=== PATIENT | female | born 1955 | race African-American/Black ===

== ENCOUNTER 2016-11-15 09:19 | Outpatient (CLI) ==
[2016-02-07 08:48] VITALS: BMI 25.3
[2016-11-15 10:43] LABS: CHOL/HDL RATIO 3.4 (4.5-5.5)
== END 2016-11-15 09:20 | disposition home or self-care (01) ==
LOC: LAB 09:19
PROVIDERS: ATTEND Internal Medicine Cardiovascular Disease
DX: E78.5 Hyperlipidemia, unspecified (principal)
CPT/HCPCS: 36415; 80061

== ENCOUNTER 2017-03-09 11:09 | Outpatient (CLI) | payer OTHER ==
[2016-02-07 08:48] VITALS: BMI 25.3
[2017-03-09 13:21] LABS: BASOPHILS % (AUTO) 0.4 % (0.0-3.0); EOSINOPHILS # (AUTO) 0.1 K/ul (0.0-0.7); EOSINOPHILS % (AUTO) 1.6 % (0.0-7.0); HEMATOCRIT 42.8 % (37.0-47.0); HEMOGLOBIN 13.9 g/dl (12.0-16.0); IMMATURE GRANULOCYTE % (AUTO) 0.4 % (0.0-5.0); LYMPHOCYTES # (AUTO) 1.8 K/uL (0.60-3.4); LYMPHOCYTES % (AUTO) 35.5 (10.0-50.0); MEAN CORPUSCULAR HEMOGLOBIN 26.8 pg (27.0-31.0); MEAN CORPUSCULAR HGB CONC 32.5 (31.8-35.4); MEAN CORPUSCULAR VOLUME 82.6 fl (81.0-99.0); MONOCYTES # (AUTO) 0.5 K/uL (0.4-2.0); NEUTROPHILS # (AUTO) 2.7 K/ul (2.0-6.9); NEUTROPHILS % (AUTO) 53.1; PLATELET COUNT 148 10^3/uL (140-440); RED BLOOD COUNT 5.18 10^6/ul (4.20-5.40); WHITE BLOOD COUNT 5.02 K/ul (4.6-10.2)
[2017-03-09 13:36] LABS: ALBUMIN 4.1 g/dL (3.4-5.0); ALBUMIN/GLOBULIN RATIO 1.08; ANION GAP 12.6; BILIRUBIN,TOTAL 0.62 mg/dL (0.00-1.20); BUN/CREATININE RATIO 13.41; CALCIUM 9.4 mg/dL (8.2-10.2); CREATININE 0.82 mg/dL (0.60-1.30); POTASSIUM 3.6 mmol/L (3.5-5.10); TOTAL PROTEIN 7.9 g/dL (5.8-8.1)
== END 2017-03-09 11:10 | disposition home or self-care (01) ==
LOC: LAB 11:09
PROVIDERS: ATTEND Nurse Practitioner Family
DX: I10 Essential (primary) hypertension (principal); I70.90 Unspecified atherosclerosis
CPT/HCPCS: 36415; 80053; 80061; 85025

== ENCOUNTER 2017-03-13 08:20 | Outpatient (CLI) | payer OTHER ==
[2016-02-07 08:48] VITALS: BMI 25.3
--- NOTE | 2017-03-14 08:53 | MAMMO ---
EXAM: Bilateral digital screening mammogram History: Screening Comparison: Bilateral mammogram 02/07/2016 Findings: MLO and CC views of bilateral breasts demonstrate scattered fibroglandular breast parench yma. There are no dominant masses, no suspicious microcalcifications and no architectural distortio ns Impression: Stable negative mammogram. Recommend follow-up routine screening mammography in 1 year . BIRADS 1
== END 2017-03-13 08:21 | disposition home or self-care (01) ==
LOC: RAD 08:20
PROVIDERS: ATTEND Nurse Practitioner Family
DX: Z12.31 Encounter for screening mammogram for malignant neoplasm of breast (principal)

== ENCOUNTER 2017-04-24 11:37 | Outpatient (CLI) ==
[2016-02-07 08:48] VITALS: BMI 25.3
[2017-04-25 09:54] LABS: TSH 6.48 uIU/mL (0.450-4.500)
== END 2017-04-24 11:38 | disposition home or self-care (01) ==
LOC: LAB 11:37
PROVIDERS: ATTEND Nurse Practitioner Family
DX: E05.90 Thyrotoxicosis, unspecified without thyrotoxic crisis or storm (principal)
CPT/HCPCS: 36415; 84436; 84439; 84443; 84479; 84481

== ENCOUNTER 2017-06-04 09:19 | Outpatient (CLI) ==
[2016-02-07 08:48] VITALS: BMI 25.3
--- NOTE | 2017-06-04 10:11 | US ---
Examination: Venous Doppler ultrasound of the left lower extremity HISTORY: Localized edema COMPARISON: None TECHNIQUE: Multiple gallardo-scale and color Doppler sonographic images were obtained of the left lower extremity focusing on the venous system with compression and augmentation were applicable. FINDINGS: The left common femoral vein, profunda femoral vein, femoral vein, and popliteal veins de monstrate spontaneous flow with appropriate compression and augmentation. No definite evidence of b elow the knee thrombosis. The anterior and posterior tibial veins are not well seen. IMPRESSION: 1. No evidence of left lower extremity DVT in the areas examined with the left posterior tibial and anterior tibial veins not well seen..
[2017-06-05 14:46] VITALS: BMI 32.3
== END 2017-06-04 09:20 | disposition home or self-care (01) ==
LOC: RAD 09:19
PROVIDERS: ATTEND Emergency Medicine
DX: R60.0 Localized edema (principal)

== ENCOUNTER 2017-06-05 11:35 | Observation (INO) ==
[2017-06-05 12:24] LABS: BASOPHILS % (AUTO) 0.4 % (0.0-3.0); EOSINOPHILS # (AUTO) 0.1 K/ul (0.0-0.7); HEMATOCRIT 43.8 % (37.0-47.0); HEMOGLOBIN 14.9 g/dl (12.0-16.0); IMMATURE GRANULOCYTE % (AUTO) 0.3 % (0.0-5.0); LYMPHOCYTES # (AUTO) 2.3 K/uL (0.60-3.4); LYMPHOCYTES % (AUTO) 34.3 (10.0-50.0); MEAN CORPUSCULAR HEMOGLOBIN 27.2 pg (27.0-31.0); MEAN CORPUSCULAR VOLUME 79.9 fl (81.0-99.0); MONOCYTES # (AUTO) 0.5 K/uL (0.4-2.0); MONOCYTES % (AUTO) 7.1 (0-10); NEUTROPHILS # (AUTO) 3.9 K/ul (2.0-6.9); NEUTROPHILS % (AUTO) 56.9; PLATELET COUNT 144 10^3/uL (140-440); RED BLOOD COUNT 5.48 10^6/ul (4.20-5.40)
--- NOTE | 2017-06-05 12:45 | DI ---
EXAM: CHEST FRONTAL AND LATERAL VIEWS HISTORY: Chest pain. COMPARISON: 10/21/2013 FINDINGS: Heart size is within normal limits. A few discoid opacities are seen in the left lower l obe or lingular segment. Lungs are otherwise clear. No visible pleural fluid. IMPRESSION: A few thin discoid opacities in the left lingular segment or lower lobe may represent atelectasis or scarring. Subtle pneumonia would be within the differential. Less likely pulmonary nodules althou gh follow-up chest radiography is recommended to assure clearance or stability.
[2017-06-05 12:47] LABS: ALANINE AMINOTRANSFERASE 25 U/L (12-78); ALBUMIN 4.3 g/dL (3.4-5.0); ALBUMIN/GLOBULIN RATIO 1.13; ALKALINE PHOSPHATASE 40 U/L (53-141); ANION GAP 15.5; ASPARTATE AMINO TRANSFERASE 22 U/L (15-37); BILIRUBIN,TOTAL 0.72 mg/dL (0.00-1.20); BLOOD UREA NITROGEN 11 mg/dL (7-18); BUN/CREATININE RATIO 13.75; CALCIUM 10.5 mg/dL (8.2-10.2); CARBON DIOXIDE 28 mmol/L (23-31); CHLORIDE 103 mmol/L (98-107); CREATINE KINASE 71 U/L; GLUCOSE 90 mg/dL (82-115); POTASSIUM 3.5 mmol/L (3.5-5.10); SODIUM 143 mmol/L (136-145); TOTAL PROTEIN 8.1 g/dL (5.8-8.1)
--- NOTE | 2017-06-05 13:15 | ED.PDOC ---
General ED Provider: Dr. NELSON DEGROOT Chief Complaint: Dizziness Stated Complaint: weak elevated blood pressure Time Seen by Physician: 11:43 (seen with nursing at all times ) Mode of Arrival: Walk-In Information Source: Patient Exam Limitations: No limitations Primary Care Provider: HAMIDA CHARLES Nursing and Triage Documentation Reviewed and Agree: Yes Cardiovascular Complaint Exam - Chest Pain Complaint/Exam Onset: Gradual Duration: 1 day Symptoms Are: Resolved Timing: Intermittent Initial Severity: Mild Current Severity: None Location: Reports: Midsternal Pain Radiates: Reports: None Character: Reports: Dull Aggravating: Reports: None Alleviating: Reports: None Associated Signs and Symptoms: Denies: Diaphoresis, Nausea, Vomiting, Fever, Palpitations, Cough, Hemoptysis, Back pain, Abdominal pain, Dizziness, Short of air, Calf pain, Calf swelling Related History: Reports: Similar episode Related Surgical History: Reports: None History of Healthcare-Acquired Pneumonia: Reports: No TAD Risk Factors: Reports: Hypertension Pulmonary Embolism Risk Factors: Reports: None Prior Care for this Complaint: No Recent Stress Test: No Recent Echo/LV Function: No JVD Present: No Subcutaneous Emphysema Present: No Diminshed Breath Sounds: No Reproducible Chest Wall Pain: No Bilateral Pulses Present: No Unequal Pulses Noted: No If Risk Factors for AMI/ACS Consider: EKG, Cardiac Enzymes Quality Indicators For Acute MD or Cardiac Chest Pain: EKG in 10min. Review of Systems - Review Of Systems Constitutional: Reports: Malaise, Weakness Eyes: Reports: No symptoms Ears, Nose, Mouth, Throat: Reports: No symptoms Respiratory: Reports: Cough Cardiac: Reports: Chest pain GI: Reports: No symptoms : Reports: No symptoms Musculoskeletal: Reports: No symptoms Skin: Reports: No symptoms Neurological: Reports: No symptoms Endocrine: Reports: No symptoms Hematologic/Lymphatic: Reports: No symptoms All Other Systems: Reviewed and Negative Past Medical History - Past Medical History Previously Healthy: Yes Endocrine: Reports: None Cardiovascular: Reports: Hypertension Respiratory: Reports: None Hematological: Reports: None Gastrointestinal: Reports: None Genitourinary: Reports: None Neuro/Psych: Reports: None Musculoskeletal: Reports: None Cancer: Reports: None Last Menstrual Period: unknown - Surgical History General Surgical History: Reports: None - Family History Family History: Reports: None - Social History Smoking Status: Former smoker Hx Substance Use: No Alcohol Screening: None Physical Exam - Physical Exam Appearance: Well-appearing, No pain distress, Well-nourished Eyes: SULLY, EOMI, Conjunctiva clear ENT: Ears normal, Nose normal, Oropharynx normal Respiratory: Airway patent, Breath sounds clear, Breath sounds equal, Respirations nonlabored Cardiovascular: RRR, Pulses normal, No rub, No murmur GI/: Soft, Nontender, No masses, Bowel sounds normal, No Organomegaly Musculoskeletal: Normal strength, ROM intact, No edema, No calf tenderness Skin: Warm, Dry, Normal color Neurological: Sensation intact, Motor intact, Reflexes intact, Cranial nerves intact, Alert, Oriented Psychiatric: Affect appropriate, Mood appropriate Critical Care Note - Critical Care Note Total Time (mins): 0 Course - Course Hematology/Chemistry: 06/05/17 12:15 06/05/17 12:15 Orders, Labs, Meds: Lab Review 06/05/17 12:15 WBC 6.80 RBC 5.48 H Hgb 14.9 Hct 43.8 MCV 79.9 L MCH 27.2 MCHC 34.0 RDW Coeff of Veronica 12.8 Plt Count 144 Immature Gran % (Auto) 0.3 Neut % (Auto) 56.9 Lymph % (Auto) 34.3 [place] % (Auto) 7.1 Eos % (Auto) 1.0 Baso % (Auto) 0.4 Immature Gran # (Auto) 0.0 Neut # 3.9 Lymph # 2.3 [place] # 0.5 Eos # 0.1 Baso # 0.0 Sodium 143 Potassium 3.5 Chloride 103 Carbon Dioxide 28 Anion Gap 15.5 BUN 11 Creatinine 0.80 Estimated GFR (MDRD) 89.00 BUN/Creatinine Ratio 13.75 Glucose 90 Calcium 10.5 H Total Bilirubin 0.72 AST 22 ALT 25 Alkaline Phosphatase 40 L Total Creatine Kinase 71 Troponin I < 0.0100 Total Protein 8.1 Albumin 4.3 Globulin 3.8 Albumin/Globulin Ratio 1.13 Orders Category Date Time Status EKG-(ED ONLY) Stat CARDIO 06/05/17 12:01 Completed CBC W/ AUTO DIFF Stat LAB 06/05/17 12:15 Completed COMPREHENSIVE METABOLIC PANEL Stat LAB 06/05/17 12:15 Completed CREATINE KINASE Stat LAB 06/05/17 12:15 Completed TROPONIN I Stat LAB 06/05/17 12:15 Completed CHEST, 2 VIEWS PA & LAT Stat RADS 06/05/17 12:01 Completed Vital Signs: Temp Pulse Resp BP Pulse Ox 06/05/17 11:36 97.5 F L 71 20 166/99 H 96 CONRADO Risk Score CONRADO Risk Score: Risk Score Odds of by 30D 0 0.1 (0.1-0.2) 1 0.3 (0.2-0.3) 2 0.4 (0.3-0.5) 3 0.7 (0.6-0.9) 4 1.2 (1.0-1.5) 5 2.2 (1.9-2.6) 6 3.0 (2.5-3.6) 7 4.8 (3.8-6.1) Departure - Departure Time of Disposition: 13:16 Disposition: HOME SELF-CARE Discharge Problem: Chest pain Qualifiers: Chest pain type: unspecified Qualifier Code: (R07.9) Chest pain, unspecified Instructions: Thoracic Pain (ED), Chest Pain (ED) Condition: Good Pt referred to PMD for follow-up: Yes Allergies/Adverse Reactions: Allergies No Known Allergies Allergy (Verified 06/05/17 11:45) Home Medications: Ambulatory Orders Lovastatin 10 mg PO BEDTIME tab-cap 05/07/17 Tramadol HCl 50 mg PO BID PRN tab-cap 05/07/17 Metoprolol Tartrate [Lopressor] 50 mg PO BID 06/05/17
[2017-06-05 14:46] VITALS: BMI 32.3
[2017-06-05] MEDS: SODIUM CHLORIDE 1,000 ML IV SCH (14:54)
[2017-06-05] MEDS ORDERED: MORPHINE 2 MG/ML SYRINGE IVP PRN (19:28)
[2017-06-05] MEDS ORDERED: GI COCKTAIL PO SCH (19:30)
[2017-06-05] MEDS ORDERED: GI COCKTAIL PO ONE (19:33)
[2017-06-05] MEDS: GI COCKTAIL PO SCH (19:42)
[2017-06-05 20:15] LABS: CREATINE KINASE 64 U/L
[2017-06-05] MEDS ORDERED: ZOFRAN 4 MG/2 ML IVP PRN (20:43)
[2017-06-05] MEDS ORDERED: NON-FORMULARY MEDICATION (Lovastatin [Lovastatin] 10 MG) PO SCH (21:00)
[2017-06-05] MEDS ORDERED: MEVACOR PO SCH (21:00)
[2017-06-05] MEDS ORDERED: LOPRESSOR PO SCH (21:00)
[2017-06-05] MEDS: LOPRESSOR PO SCH (21:58)
[2017-06-06] MEDS: GI COCKTAIL PO SCH ×3 (02:06→13:29)
[2017-06-06 04:26] LABS: BASOPHILS % (AUTO) 0.1 % (0.0-3.0); EOSINOPHILS # (AUTO) 0.1 K/ul (0.0-0.7); EOSINOPHILS % (AUTO) 0.9 % (0.0-7.0); HEMATOCRIT 42.4 % (37.0-47.0); HEMOGLOBIN 13.9 g/dl (12.0-16.0); IMMATURE GRANULOCYTE % (AUTO) 0.3 % (0.0-5.0); LYMPHOCYTES # (AUTO) 2.9 K/uL (0.60-3.4); LYMPHOCYTES % (AUTO) 32.1 (10.0-50.0); MEAN CORPUSCULAR HEMOGLOBIN 26.7 pg (27.0-31.0); MEAN CORPUSCULAR HGB CONC 32.8 (31.8-35.4); MEAN CORPUSCULAR VOLUME 81.4 fl (81.0-99.0); MONOCYTES # (AUTO) 0.6 K/uL (0.4-2.0); MONOCYTES % (AUTO) 6.5 (0-10); NEUTROPHILS # (AUTO) 5.4 K/ul (2.0-6.9); NEUTROPHILS % (AUTO) 60.1; PLATELET COUNT 175 10^3/uL (140-440); RED BLOOD COUNT 5.21 10^6/ul (4.20-5.40); WHITE BLOOD COUNT 8.99 K/ul (4.6-10.2)
[2017-06-06] MEDS: SODIUM CHLORIDE 1,000 ML IV SCH ×2 (04:42→18:34)
[2017-06-06 04:52] LABS: ALBUMIN 3.8 g/dL (3.4-5.0); ALBUMIN/GLOBULIN RATIO 1.19; ANION GAP 16.9; BILIRUBIN,TOTAL 0.63 mg/dL (0.00-1.20); BUN/CREATININE RATIO 12.93; CALCIUM 9.4 mg/dL (8.2-10.2); CREATININE 1.16 mg/dL (0.60-1.30); POTASSIUM 3.9 mmol/L (3.5-5.10)
[2017-06-06 05:00] LABS: CREATINE KINASE 48 U/L
[2017-06-06] MEDS ORDERED: DYAZIDE PO SCH (09:00)
[2017-06-06] MEDS ORDERED: ZESTRIL PO SCH (09:00)
[2017-06-06] MEDS ORDERED: NON-FORMULARY MEDICATION (Lisinopril [Lisinopril] 20 MG) PO SCH ×22 (09:00)
--- NOTE | 2017-06-06 09:25 | US ---
EXAM: Ultrasound abdomen limited right upper quadrant HISTORY: Abdominal pain COMPARISON: None TECHNIQUE: Limited ultrasound abdomen right upper quadrant was performed FINDINGS: Evaluation limited due to bowel gas shadowing and patient body habitus Pancreas obscured secondary bowel gas shadowing. Main portal vein patent with direction of flow. Liver poorly visual ized portions of the liver obscured secondary to bowel gas shadowing. Liver probably increased in ec hogenicity. Patient status post cholecystectomy. Common bile duct poorly visualized secondary bowel gas shadowing, measuring approximately 0.6 cm without definite biliary duct dilation. Right kidney measures 8.5 cm in length without hydronephrosis. IMPRESSION: 1. Significantly limited examination due to bowel gas shadowing. 2. Status post cholecystectomy. No definite biliary duct dilation, noting limitations. 3. Liver poorly visualized and partially obscured secondary to bowel gas shadowing. Probable echog enic liver suggesting hepatic steatosis and/or hepatic parenchymal disease.
--- NOTE | 2017-06-06 13:13 | STRESSMOD ---
Ordering Physician: BRADY DURAN Date of Test: 06/06/17 Medical History: CHEST PAIN, HTN Current Medications: LOPRESSOR, DYAZIDE, TRAMADOL PROTONIX, LOVASTATIN, LISINOPRIL, BENTYL Physical Findings: S1, S2, NO S3 Resting EKG: SINUS RHYTHM/NON SPECIFIC ST-T WAVE CHANGE Target Heart Rate: 136/160 STAGE MPH/GRADE HEART RATE BPM BLOOD PRESSURE mmhg RHYTHM S-T SEGMENT UP DOWN SYMPTOMS,COMMENTS At Rest 65 132/82 SR X NONE 1 1.7/0% 2 1.7/5% 3 1.7/10% 4 2.5/12% 5 3.4/14% 6 4.2/16% 7 5.18% Immediately after 133 168/70 SR X SHORT OF BREATH Total Time: 1:56 Maximum Heart Rate Reached: 133 Reason for Termination : SHORT OF BREATH 3 MINUTES POST EXERCISE: HR 65 BPM, SR, +/- ____ INTERPRETATION: 100% OXYGEN SATURATION WITH EXERCISE ON ROOM AIR 1. NO EVIDENCE OF ISCHEMIA BY ST-T WAVE 2. NO CHEST PAIN OR CHEST DISCOMFORT 3. BLOOD PRESSURE NORMAL 4. NO ARRHYTHMIAS NORMAL LEFT VENTRICULAR CONTRACTILITY--RESTING AND POST EXERCISE MTDD
--- NOTE | 2017-06-06 13:16 | ECHOSTRESS ---
Date of Exam: 06/06/17 Ordering Physician: BRADY DURAN Reason for Echo: CHEST PAIN, HTN, STRESS TEST--NO ISCHEMIA M-Mode Normal Adult Results LV Dimensions Normal Adult Results AoV Opening excursions >1.6 LVEDD-base- 3.5-5.8 Ao root dimensions 2.0-3.7 LVESD-base- 3.1-4.6 L. Atrium dimensions 1.9-3.8 Post. Wall thickness 0.8-1.1 IV septum (thickness) 0.7-1.2 Post. Wall excursion 0.72-1.3 Septal motion Systolic motion R. Ventricular cavity 1.5-2.0 LVEF 60% Paradoxical septal wall motion 2-D: NORMAL LEFT VENTRICULAR CONTRACTILITY--RESTING AND POST EXERCISE M-MODE: MV: AV: TV: PV: CHAMBER SIZE: WALL MOTION: NORMAL LEFT VENTRICULAR CONTRACTILITY--RESTING AND POST EXERCISE PERICARDIUM: INTERPRETATION: 1. NORMAL LEFT VENTRICULAR CONTRACTILITY--RESTING AND POST EXERCISE MTDD
--- NOTE | 2017-06-06 13:19 | ECHO2D ---
Date of Exam: 06/06/17 [facility] Reason for Echo: CHEST PAIN, HYPERTENSION Auscultation: S1, S2 M-Mode Normal Adult Results LV Dimensions Normal Adult Results AoV Opening excursions >1.6 >1.6 LVEDD-base- 3.5-5.8 4.9 Ao root dimensions 2.0-3.7 3.3 LVESD-base- 3.1-4.6 L. Atrium dimensions 1.9-3.8 3.8 Post. Wall thickness 0.8-1.1 1.1 IV septum (thickness) 0.7-1.2 1.1 Post. Wall excursion 0.72-1.3 NORMAL Septal motion NORMAL Systolic motion R. Ventricular cavity 1.5-2.0 NORMAL LVEF 60% 53% Paradoxical septal wall motion NORMAL 2-D : 2-D M Mode Echocardiogram was performed using apical four chamber and left parasternal long and short axis views. Mitral, tricuspid and aortic valves appear to be normal. Contractility of the left ventricle seems to be normal, so is the cavity size. Left atrial cavity size and aortic root appear to be normal. There is no pericardial effusion. There is no thrombus noted in the left ventricular or left aortic cavity. No mitral valve prolapse noted. M-MODE: MV: NORMAL AV: NORMAL TV: NORMAL PV: CHAMBER SIZE: NORMAL WALL MOTION: NORMAL PERICARDIUM: NORMAL INTERPRETATION: 1. NORMAL 2 "D" "M" [facility]
[2017-06-06] MEDS: LOPRESSOR PO SCH (13:27)
--- NOTE | 2017-06-06 13:39 | CONS ---
REASON FOR CONSULTATION: This 61 year old BLACK/ F was hospitalized 06/05/17. The patient is hospitalized with chest pain, epigastric, nausea and vomiting this morning. The patient is feeling a lot better and is hungry now. REVIEW OF SYSTEMS: CONSTITUTIONAL: No night sweats. No fatigue, malaise, lethargy. No fever or chills. HEENT: Eyes: No visual changes. No eye pain. No eye discharge. ENT: No runny nose. No epistaxis. No sinus pain. No odynophagia. No congestion. RESPIRATORY: No cough, no congestion. No hemoptysis. CARDIOVASCULAR: No angina symptoms. No CHF symptoms. No exertional chest pain or radiation of pain. No palpitations. No shortness of breath. GASTROINTESTINAL: Epigastric pain. Nausea and vomiting. No diarrhea or constipation. No hematemesis. No hematochezia. GENITOURINARY: No urgency. No frequency. No dysuria. No hematuria. No obstructive symptoms. No discharge. No pain. No significant abnormal bleeding. MUSCULOSKELETAL: No musculoskeletal pain; no joint swelling. NEUROLOGICAL: Awake, alert, oriented to time, place and person. No headache. No neck pain. No syncope. No seizures. No dizziness. PSYCHIATRIC: Not anxious. No depression. No suicidal thoughts. No homicidal thoughts. SKIN: No rash. No lesions. No wounds. ENDOCRINE: No unexplained weight loss. No weight gain. HEMATOLOGIC/LYMPHATIC: No anemia. No purpura. No petechiae. No prolonged or excessive bleeding. No palpable lymph nodes. PAST MEDICAL/SURGICAL HISTORY: Hypertension Dyslipidemia Irritable bowel syndrome GERD No significant surgical history ALLERGIES: NKDA MEDICATIONS: IV fluids 75 mls/hr Morphine 2 mg IVP q.6h p.r.n. Mag-Al Plus//Lidocaine (GI cocktail) 30 mL p.o. q.i.d. Mag-Al Plus//Lidocaine (GI cocktail) 30 mL p.o. q.6hr Ondansetron (Zofran) 4 mg IVP q.6h p.r.n. Lovastatin 10 mg p.o. bedtime Metoprolol (Lopressor) 50 mg p.o. b.i.d. Lovastatin (Mevacor) 10 mg p.o. bedtime Lopressor 25 mg p.o. b.i.d. Lisinopril 20 mg p.o. daily Triamterene/Hydrochlorothiazide (Dyazide) one cap p.o. daily Lisinopril (Zestril) 20 mg p.o. daily SOCIAL HISTORY: , lives with . No alcohol abuse. Nonsmoker. LAB REVIEW: 06/06/17 03:50 06/06/17 03:50 06/06/17 03:50: WBC 8.99, RBC 5.21, Hgb 13.9, Hct 42.4, MCV 81.4, MCH 26.7 L, MCHC 32.8, RDW Coeff of Veronica 12.9, Plt Count 175, Immature Gran % (Auto) 0.3, Neut % (Auto) 60.1, Lymph % (Auto) 32.1, [place] % (Auto) 6.5, Eos % (Auto) 0.9, Baso % (Auto) 0.1, Immature Gran # (Auto) 0.0, Neut # 5.4, Lymph # 2.9, [place] # 0.6, Eos # 0.1, Baso # 0.0, Sodium 145, Potassium 3.9, Chloride 101, Carbon Dioxide 31, Anion Gap 16.9, BUN 15, Creatinine 1.16, Estimated GFR (MDRD) 58.00 , BUN/Creatinine Ratio 12.93, Glucose 102, Calcium 9.4, Total Bilirubin 0.63, AST 28, ALT 27, Alkaline Phosphatase 36 L, Total Creatine Kinase 48, Troponin I < 0.0100, Total Protein 7.0, Albumin 3.8, Globulin 3.2, Albumin/Globulin Ratio 1.19 06/05/17 19:48: Total Creatine Kinase 64, Troponin I < 0.0100 PHYSICAL EXAMINATION: GENERAL: The patient is awake, alert and oriented, lying in bed in no distress. VITAL SIGNS: Temperature 97.4 F, Pulse 52, Respiratory Rate 16, BP 100/80, Pulse Ox 92% HEENT: Head normocephalic, atraumatic. Eyes: Extraocular muscles are intact. Pupils are equal, round and reactive to light and accommodation. Ears: No lesions. Nose appeared normal. Throat: No exudate or erythema. NECK: Supple. No JVD, no carotid bruit. No lymphadenopathy or thyromegaly. LUNGS: Clear to auscultation. Percussion note normal. Chest symmetrical. HEART: S1, S2, no S3. No murmurs. No cyanosis or clubbing. No ascites. Pulses: Dorsalis pedis and posterior tibial pulses +1 to +2 both sides. ABDOMEN: Soft. Non-tender. Bowel sounds active. No CVA tenderness. No mass felt. EXTREMITIES: No edema. Full range of motion of all extremities, equal. NEUROLOGIC: No focal deficit. Cranial nerves II through XII are grossly intact. No headache, no double vision or headache. SKIN: Not dry. Intact. Turgor-normal. LYMPHATIC: No palpable lymph nodes/no lymphedema. MUSCULOSKELETAL: Normal joints with no swelling. Muscle tone is normal. ASSESSMENT: 1. Chest pain seems to be noncardiac. Risk factors for CAD with sedentary lifestyle, BMI 32, dyslipidemia and hypertension. 2. Hypertension 3. Dyslipidemia RECOMMENDATIONS/PLAN: 1. Lipid profile if not done in past 3 months, T4 and TSH. 2. Telemetry as ordered. 3. Cardiac markers as ordered. 4. Will do resting echo 2D 'M' Mode. 5. Stress echocardiogram. 6. The patient is already undergoing GI and gallbladder workup. EKG shows sinus rhythm, no acute changes. Cardiac markers are negative. Telemetry - sinus rhythm with no ST-T wave changes. Plan and coordination of the patient's care discussed in the presence of Returned Goods Sorter and Nurse. CONDITION: Stable SCRIBED BY: SILVIA YOUNG Third Rail Installer scribed while in presence of service performed by Dr. GIULIANO TILLEY on 06/06/17 ([id number]) [facility]ITALShavonne
[2017-06-06 18:27] VITALS: BP 99/65; TEMP 97.2
--- NOTE | 2017-06-08 12:38 | PN ---
CODING FOR BILLING: (MY OFFICE AND DANYEL) The patient was seen on 06/06/17 --- LEVEL5 MTDD
--- NOTE | 2017-07-10 11:06 | PN ---
DATE OF SERVICE: 06/05/17 CHIEF COMPLAINT: Chest pain HISTORY OF PRESENT ILLNESS: The patient is a 61 year old female who came to the emergency room with the chest tightness, room has been spinning, chest pain wall pain was like a heaviness radiating to the left arm not associated with palpitation although with exertion, rest was making it better. The patient's blood pressure medication was increased slightly. The patient also having the spinning head and lightheadedness. After the patient was seen in the emergency room Dr. Talbot admitted the patient for observation and ruling out acute coronary syndrome in review of the chest pain and multiple medical problems. REVIEW OF SYSTEMS: CONSTITUTIONAL: No fever, no chills. HEENT: Normal. ENDOCRINE: No weight gain; no weight loss. CVS: No chest pain. No PND, no orthopnea. No shortness of breath. No PND, no orthopnea. RESPIRATORY: No cough, no congestion. No hemoptysis. GI: No nausea, no vomiting. No abdominal pain. No melena. : No hematuria. No polyuria. MUSCULOSKELETAL: No joint swelling. PSYCHIATRIC: Not anxious. No depression. No suicidal thoughts. No homicidal thoughts. SKIN: Intact, no open lesions. PHYSICAL EXAMINATION: V/S: Blood pressure 166/99, respiratory rate 20, heart rate 59 and temperature 97.5 with saturation 96%. HEENT: Atraumatic, normocephalic. No scleral icterus. Mucosa dry. NECK: Supple. No JVD, no bruit. No lymphadenopathy. No thyromegaly. HEART: S1, S2 normal. No murmur. No cyanosis or clubbing. No ascites. LUNGS: Clear to auscultation. No rales or rhonchi. ABDOMEN: Soft, nontender. Bowel sounds are active. No CVA tenderness. No rigidity or guarding. EXTREMITIES: No cyanosis, clubbing or pedal edema. MUSCULOSKELETAL: Normal joints, no swelling. NEUROLOGIC: The patient is SKIN: Intact; no open lesions. LYMPHATIC: No lymph nodes palpable. LABS: WBC 6.80, hgb 14.9, hct 43.8, plt count 144, sodium 143, potassium 3.5, chloride 103, bicarb 28, BUN 11, creatinine 0.80, glucose 90. ASSESSMENT: 1. Chest pain rule out ACS 2. Hypertension, uncontrolled 3. Dyslipidemia 4. Osteoarthritis 5. Hypothyroidism 6. DJD spine 7. Depression 8. Smoking PLAN: 1. Admit patient to the observation 2. Cardiology consultation 3. CBC and CMP today and daily 4. Cardiac enzymes and Troponin 5. IV fluids 6. Daily I&O's TIME SPENT: MORE THAN 55 minutes MTDD
--- NOTE | 2017-07-10 11:11 | PN ---
DATE OF SERVICE: 06/06/17 SUBJECTIVE: The patient was admitted with the chest pain. Two sets of the cardiac enzymes are negative. Dr. Joseph is doing the stress test and echocardiogram today. REVIEW OF SYSTEMS: CONSTITUTIONAL: No fever, no chills. HEENT: Normal. ENDOCRINE: No weight gain, no weight loss. CVS: No angina symptoms. No CHF symptoms. No palpitations. No atypical chest pain for CAD. No shortness of breath. No PND, no orthopnea. RESPIRATORY: No cough, no hemoptysis. GI: No nausea, no vomiting. No abdominal pain. : No hematuria. No polyuria. MUSCULOSKELETAL:. No joint swelling. PSYCHIATRIC: Not anxious. No depression. No suicidal thoughts. No homicidal thoughts. SKIN: Intact. No rash. PHYSICAL EXAMINATION: V/S: Blood pressure 128/80, respiratory rate 18, heart rate 62, temperature 97.9 with saturation 94% on the room air. HEENT: Normocephalic, atraumatic. Mucosa . NECK: Supple. No JVD, no carotid bruit. No lymphadenopathy. LUNGS: Clear to auscultation. No rales or rhonchi. HEART: S1, S2 normal. No S3. No murmur, gallop or regurgitation. ABDOMEN: Soft, nontender. Bowel sounds active. No rigidity. No rebound or guarding. No CVA tenderness. EXTREMITIES: No clubbing, cyanosis or pedal edema. MUSCULOSKELETAL: No joint swelling. NEUROLOGIC: Awake, alert, oriented times three. No focal deficit. LYMPHATIC: No lymph nodes palpable. SKIN: Intact. LABS: Sodium 145, potassium 3.9, chloride 101, bicarb 31, BUN 15, creatinine 1.16, glucose 102, WBC 8.99, hgb 13.9, hct 42.4, plt count 175. ASSESSMENT: 1. Chest pain, most likely noncardiac maybe gastritis, two sets are cardiac enzymes are negative. 2. Hypertension 3. Dyslipidemia 4. Hypothyroidism 5. Obesity 6. Osteoarthritis 7. DJD spine PLAN: 1. Echocardiogram and stress echocardiogram by Dr. Joseph 2. Lifestyle modification weight loss been discussed. TIME SPENT: More than 55 minutes MTDD
--- NOTE | 2017-07-18 12:13 | SSS ---
DATE OF SERVICE: 06/05/17-06/06/17 CHIEF COMPLAINT: Chest tightness. HISTORY OF PRESENT ILLNESS: This is a 61 year old female who came to the emergency room with midsternal chest pain, tightness, heaviness, radiating to the left side. It was associated with some shortness of breath and some dizziness, lightheadedness. The patient was recently seen at the [facility]. Metoprolol was increased as the blood pressure was not controlled, which is still not helping. At that time, the patient was admitted to the hospital to rule out acute coronary syndrome. REVIEW OF SYSTEMS: CONSTITUTIONAL: No night sweats. No fatigue, malaise, lethargy. No fever or chills. HEENT: Eyes: No visual changes. No eye pain. No eye discharge. ENT: No runny nose. No epistaxis. No sinus pain. No sore throat. No odynophagia. No ear pain. No congestion. RESPIRATORY: No cough, no congestion. No hemoptysis. No shortness of breath. CARDIOVASCULAR: No angina symptoms. No CHF symptoms. No atypical chest pain for CAD. No palpitations. No orthopnea. GASTROINTESTINAL: No abdominal pain. No nausea or vomiting. No diarrhea or constipation. No hematemesis. No hematochezia. GENITOURINARY: No dysuria. No hematuria. No obstructive symptoms. No discharge. No pain. No significant abnormal bleeding. MUSCULOSKELETAL: No musculoskeletal pain. No joint swelling. NEUROLOGICAL: Awake, alert, oriented to time, place and person. No headache. No neck pain. No syncope. No seizures. No dizziness. PSYCHIATRIC: Not anxious. No depression. No suicidal thoughts. No homicidal thoughts. SKIN: No rash. No lesions. No wounds. ENDOCRINE: No unexplained weight loss. No weight gain. HEMATOLOGIC/LYMPHATIC: No anemia. No purpura. No petechiae. No prolonged or excessive bleeding. No palpable lymph nodes. PAST HISTORY: Hypertension, Dyslipidemia, obesity, osteoarthritis, DJD of the spine, depression, anxiety, nicotine use, hypothyroidism. PAST SURGICAL HISTORY: Cholecystectomy. PERSONAL/FAMILY HISTORY/SOCIAL HISTORY: The patient does smoke. She is and lives with her . Family history is significant for the coronary artery disease. ALLERGIES: No known drug allergies. MEDICATIONS: Dyazide, Tramadol, Lovastatin, Plendil, Pantoprazole, Lisinopril, Metoprolol tartrate. PHYSICAL EXAMINATION: GENERAL: The patient is lying in bed in no distress. VITAL SIGNS: Blood pressure 128/80, respiratory rate 18, heart rate 60, temperature 97.8. HEENT: Head normocephalic, atraumatic. Eyes: Extraocular muscles are intact. Pupils are equal, round and reactive to light and accommodation. Ears: No lesions. Nose appeared normal. Throat: No exudate or erythema. NECK: Supple. No JVD, no carotid bruit. No lymphadenopathy or thyromegaly. LUNGS: Clear to auscultation. Percussion note normal. Chest symmetrical. HEART: S1, S2, no S3. No murmurs. No cyanosis or clubbing. No ascites. Pulses: Dorsalis pedis and posterior tibial pulses +1 to +2 both sides. ABDOMEN: Soft. Nontender. Bowel sounds active. No CVA tenderness. No mass felt. EXTREMITIES: No edema. Full range of motion of all extremities, equal. NEUROLOGIC: No focal deficit. Cranial nerves II through XII are grossly intact. No headache, no double vision or headache. SKIN: Not dry. Intact. Turgor - normal. LYMPHATIC: No palpable lymph nodes/no lymphedema. MUSCULOSKELETAL: Normal joints with no swelling. Muscle tone is normal. Old/present records reviewed Office records reviewed. LABS/EKG'S/X-RAY/ECHO/ABG: Sodium 145, potassium 3.9, chloride 101, bicarb 31, BUN 15, creatinine 1.16, glucose 102, white count 8.99, hemoglobin 13.9, hematocrit 42.4, platelet count 175. BRIEF HOSPITAL COURSE: The patient was admitted to observation. Cariology consultation was obtained with Dr. Joseph. The patient was seen and examined by Dr. Joseph on 06/06/17. He did the stress test, which showed no evidence of ischemia. Blood pressure was normal. Stress echocardiogram done, which was normal with ejection fraction of 51. Regular echocardiogram with ejection fraction 51. No dilation of the heart. Two set of the cardiac enzymes were normal. Cardiac work-up was negative, so the patient was discharged to home. Case Discussed with Family: FINAL DIAGNOSES: 1. CHEST PAIN, NONCARDIAC, MOST LIKELY FROM THE GASTRITIS 2. HISTORY OF HYPERTENSION, LABILE 3. DYSLIPIDEMIA 4. OBESITY 5. OSTEOARTHRITIS 6. DJD OF THE SPINE 7. HYPOTHYROIDISM 8. NICOTINE USE PLAN: 1. Discharge the patient home. 2. Lifestyle modifications, weight loss and diet control. 3. Keep monitoring the blood pressure. Try to keep the blood pressure below 130/86 discussed. Stroke was discussed. 4. Smoking and risk of lung cancer discussed. Advised and offered the help to cut down on the smoking, but the patient said that she will try by herself and does not need any help at this time. TIME SPENT: More than 65 minutes today. PAULD
== END 2017-06-06 19:45 | disposition home or self-care (01) ==
LOC: ED 11:35 → SCU 13:22 → MEDSURG B 06-06 17:44
PROVIDERS: ADMIT Emergency Medicine; ATTEND Emergency Medicine
DX: R07.89 Other chest pain (principal); R42 Dizziness and giddiness; I10 Essential (primary) hypertension; E78.5 Hyperlipidemia, unspecified; E66.9 Obesity, unspecified; F32.9 Major depressive disorder, single episode, unspecified; M19.90 Unspecified osteoarthritis, unspecified site; M47.9 Spondylosis, unspecified; E03.9 Hypothyroidism, unspecified; F17.200 Nicotine dependence, unspecified, uncomplicated; Z72.3 Lack of physical exercise; Z68.32 Body mass index [BMI] 32.0-32.9, adult; Z79.899 Other long term (current) drug therapy
CPT/HCPCS: 36415; 80053; 82550; 84436; 84443; 84484; 85025; 93005; 93010; 99217; 99220; 99245; 99284

== ENCOUNTER 2017-06-09 12:29 | Emergency (ER) ==
[2017-06-09 12:38] VITALS: BP 152/86; TEMP 98.6; BMI 33.3
[2017-06-09 13:07] LABS: BASOPHILS % (AUTO) 0.4 % (0.0-3.0); EOSINOPHILS # (AUTO) 0.1 K/ul (0.0-0.7); EOSINOPHILS % (AUTO) 1.1 % (0.0-7.0); HEMATOCRIT 45.5 % (37.0-47.0); IMMATURE GRANULOCYTE % (AUTO) 0.7 % (0.0-5.0); LYMPHOCYTES # (AUTO) 2.1 K/uL (0.60-3.4); LYMPHOCYTES % (AUTO) 26.5 (10.0-50.0); MEAN CORPUSCULAR HEMOGLOBIN 26.8 pg (27.0-31.0); MEAN CORPUSCULAR VOLUME 81.4 fl (81.0-99.0); MONOCYTES # (AUTO) 0.7 K/uL (0.4-2.0); MONOCYTES % (AUTO) 8.5 (0-10); NEUTROPHILS % (AUTO) 62.8; PLATELET COUNT 179 10^3/uL (140-440); RED BLOOD COUNT 5.59 10^6/ul (4.20-5.40); WHITE BLOOD COUNT 8.03 K/ul (4.6-10.2)
--- NOTE | 2017-06-09 13:17 | CT ---
EXAM: CT Head HISTORY: Dizzy COMPARISON: None TECHNIQUE: CT head performed without contrast FINDINGS: There is no mass effect, midline shift, or intracranial hemmorhage. Palma white different iation is preserved. There is no extra-axial collection. The ventricles, sulci, and basal cisterns are patent and symmetric. There is chronic ischemic disease of the white matter and cerebral volum e loss. Calcifications and/or calcifications along the falx. Scattered nonspecific parenchymal calc ifications present. There is no depressed calvarial fracture. The mastoid air cells are clear. The visualized paranasal sinuses are clear. There are intracranial atherosclerotic calcifications. IMPRESSION: 1. No acute intracranial abnormality. 2. Chronic ischemic disease of the white matter and cerebral volume loss.
[2017-06-09 13:22] LABS: ALBUMIN 4.3 g/dL (3.4-5.0); ALBUMIN/GLOBULIN RATIO 1.1; ANION GAP 16.3; BILIRUBIN,TOTAL 0.58 mg/dL (0.00-1.20); BUN/CREATININE RATIO 9.8; CALCIUM 10.3 mg/dL (8.2-10.2); CREATININE 1.02 mg/dL (0.60-1.30); POTASSIUM 4.3 mmol/L (3.5-5.10); TOTAL PROTEIN 8.2 g/dL (5.8-8.1)
--- NOTE | 2017-06-09 13:32 | ED.PDOC ---
General ED Provider: Dr. NELSON DEGROOT Chief Complaint: Dizziness Stated Complaint: dizziness Time Seen by Physician: 12:40 Mode of Arrival: Ambulance Information Source: Patient Exam Limitations: No limitations Primary Care Provider: BRADY CRUMPRobert Nursing and Triage Documentation Reviewed and Agree: Yes Neurological Complaint Exam - Dizziness Complaint/Exam Last Known Well: 1 day ago Onset: Gradual Duration: 1 day Symptoms Are: Still present Timing: Intermittent Episodes Lasting: Seconds Initial Severity: Mild Current Severity: Mild Character: Reports: Dizzy Aggravating: Reports: Position change Alleviating: Reports: Rest, Lying down Associated Signs and Symptoms: Denies: Nausea, Vomiting, Diaphoresis, Tinnitus, Chest pain, Short of air, Palpitations, Unsteady gait, GI blood loss, Visual changes, Decreased oral intake, Change in medication, Change in diet, OTC meds, Loss of balance Related History: Similar episode Cardiac Risk Factors: Reports: Hypertension CVA Risk Factors: Reports: Hypertension JVD Present: No Carotid Bruit Present: No Rectal Heme Positive: No Glascow Coma Scale (see protocol): 15 Nystagmus Present: No Gag Reflex Present: No Meningeal Signs Positive: No Focal Weakness: Present: None Focal Sensory Loss: Present: None Gait: Normal Review of Systems - Review Of Systems Constitutional: Reports: No symptoms Eyes: Reports: No symptoms Ears, Nose, Mouth, Throat: Reports: No symptoms Respiratory: Reports: No symptoms Cardiac: Reports: No symptoms GI: Reports: No symptoms : Reports: No symptoms Musculoskeletal: Reports: No symptoms Skin: Reports: No symptoms Neurological: Reports: Other (dizziness) Endocrine: Reports: No symptoms Hematologic/Lymphatic: Reports: No symptoms All Other Systems: Reviewed and Negative Past Medical History - Past Medical History Previously Healthy: Yes Endocrine: Reports: None Cardiovascular: Reports: Hypertension Respiratory: Reports: None Hematological: Reports: None Gastrointestinal: Reports: None Genitourinary: Reports: None Neuro/Psych: Reports: None Musculoskeletal: Reports: None Cancer: Reports: None Last Menstrual Period: unknown - Surgical History General Surgical History: Reports: None - Family History Family History: Reports: None - Social History Smoking Status: Former smoker Hx Substance Use: No Alcohol Screening: None Physical Exam - Physical Exam Appearance: Well-appearing, No pain distress, Well-nourished Eyes: SULLY, EOMI, Conjunctiva clear ENT: Ears normal, Nose normal, Oropharynx normal Respiratory: Airway patent, Breath sounds clear, Breath sounds equal, Respirations nonlabored Cardiovascular: RRR, Pulses normal, No rub, No murmur GI/: Soft, Nontender, No masses, Bowel sounds normal, No Organomegaly Musculoskeletal: Normal strength, ROM intact, No edema, No calf tenderness Skin: Warm, Dry, Normal color Neurological: Sensation intact, Motor intact, Reflexes intact, Cranial nerves intact, Alert, Oriented Psychiatric: Affect appropriate, Mood appropriate Critical Care Note - Critical Care Note Total Time (mins): 0 Course - Course Hematology/Chemistry: 06/09/17 12:50 Orders, Labs, Meds: Lab Review 06/09/17 12:50 WBC 8.03 RBC 5.59 H Hgb 15.0 Hct 45.5 MCV 81.4 MCH 26.8 L MCHC 33.0 RDW Coeff of Veronica 13.1 Plt Count 179 Immature Gran % (Auto) 0.7 Neut % (Auto) 62.8 Lymph % (Auto) 26.5 [place] % (Auto) 8.5 Eos % (Auto) 1.1 Baso % (Auto) 0.4 Immature Gran # (Auto) 0.1 Neut # 5.0 Lymph # 2.1 [place] # 0.7 Eos # 0.1 Baso # 0.0 Orders Category Date Time Status EKG-(ED ONLY) Stat CARDIO 06/09/17 12:42 Completed CBC W/ AUTO DIFF Stat LAB 06/09/17 12:50 Completed COMPREHENSIVE METABOLIC PANEL Stat LAB 06/09/17 12:[address] HEAD W/O CONTRAST Stat RADS 06/09/17 12:42 Completed Vital Signs: Temp Pulse Resp BP Pulse Ox 06/09/17 12:32 98.6 F 66 20 152/86 H 95 Departure - Departure Time of Disposition: 14:20 Disposition: HOME SELF-CARE Discharge Problem: Dizziness Positional vertigo Qualifiers: Laterality: unspecified laterality Qualifier Code: (H81.10) Benign paroxysmal vertigo, unspecified ear Instructions: Vertigo (ED) Condition: Good Pt referred to PMD for follow-up: Yes Additional Instructions: Please call your Family Physician as soon as possible to schedule a follow-up appointment. Allergies/Adverse Reactions: Allergies No Known Allergies Allergy (Verified 06/05/17 11:45) Home Medications: Ambulatory Orders Lovastatin 10 mg PO BEDTIME tab-cap 05/07/17 Metoprolol Tartrate [Lopressor] 25 mg PO BID 06/05/17 Disposition Discussed With: Patient
== END 2017-06-09 13:57 | disposition home or self-care (01) ==
LOC: ED 12:29
DX: H81.10 Benign paroxysmal vertigo, unspecified ear (principal); I10 Essential (primary) hypertension
CPT/HCPCS: 36415; 80053; 85025; 93005; 93010; 99283

== ENCOUNTER 2017-12-26 10:29 | Observation (INO) ==
[2017-12-26] MEDS ORDERED: SODIUM CHLORIDE 1,000 ML IV SCH (12:00)
[2017-12-26] MEDS ORDERED: CATAPRES PO PRN (13:32)
[2017-12-26] MEDS: BENTYL PO SCH ×2 (14:02→20:09)
[2017-12-26] MEDS: ANTIVERT PO SCH ×2 (14:02→20:08)
[2017-12-26] MEDS: SODIUM CHLORIDE 1,000 ML IV SCH (14:02)
--- NOTE | 2017-12-26 15:15 | CT ---
EXAM: CT BRAIN HISTORY: Headache TECHNIQUE: CT brain without intravenous contrast. 5-mm axial sections with Reformations. COMPARISON: 06/09/2017 FINDINGS: Mild generalized atrophy. Subtle basal ganglia calcification. Heavy calcification of the mid to ant erior interhemispheric falx. These findings are stable. Brain otherwise is unremarkable without evidence of hemorrhage or large vessel distribution recent is chemic infarction. There is no suggestion of acute hydrocephalus or subdural fluid collection. No m ass or mass effect. Cranium is within normal limits. Mastoid processes are aerated. The visualized paranasal sinuses a re clear. IMPRESSION: No acute intracranial process.
[2017-12-26] MEDS: LOPRESSOR PO SCH (17:08)
[2017-12-26] MEDS: CARAFATE PO SCH ×2 (17:08→20:09)
[2017-12-26] MEDS: MEVACOR PO SCH (20:08)
[2017-12-26] MEDS: IMDUR PO SCH (20:09)
[2017-12-26] MEDS ORDERED: NON-FORMULARY MEDICATION (Lovastatin [Lovastatin] 10 MG) PO SCH (21:00)
[2017-12-27] MEDS: PROTONIX PO SCH (05:37)
[2017-12-27] MEDS: CARAFATE PO SCH ×4 (05:37→20:51)
[2017-12-27] MEDS: BENTYL PO SCH ×3 (09:30→20:52)
[2017-12-27] MEDS: IMDUR PO SCH ×2 (09:31→20:50)
[2017-12-27] MEDS: ZESTRIL PO SCH (09:31)
[2017-12-27] MEDS: ANTIVERT PO SCH ×3 (09:32→20:51)
[2017-12-27] MEDS: LOPRESSOR PO SCH ×2 (09:32→17:09)
[2017-12-27] MEDS: SODIUM CHLORIDE 1,000 ML IV SCH (13:06)
[2017-12-27] MEDS ORDERED: K-DUR PO STA (16:15)
[2017-12-27] MEDS: MEVACOR PO SCH (20:51)
[2017-12-28 05:05] VITALS: BP 122/70; TEMP 98.1
[2017-12-28] MEDS: CARAFATE PO SCH (05:39)
[2017-12-28] MEDS: PROTONIX PO SCH (05:40)
[2017-12-28] MEDS: ZESTRIL PO SCH (08:41)
[2017-12-28] MEDS: LOPRESSOR PO SCH (08:41)
[2017-12-28] MEDS: ANTIVERT PO SCH (08:42)
[2017-12-28] MEDS: IMDUR PO SCH (08:42)
[2017-12-28] MEDS: BENTYL PO SCH (08:42)
[2017-12-28] MEDS: SODIUM CHLORIDE 1,000 ML IV SCH (08:43)
--- NOTE | 2017-12-28 14:44 | PN ---
DATE OF SERVICE: 12/27/17 SUBJECTIVE: The patient was admitted with uncontrolled blood pressure and headache. CT of the head is negative. Home medications have been continued since admission and the blood pressure has been better. Headache and dizziness are improved. REVIEW OF SYSTEMS: CONSTITUTIONAL: No fever, no chills. HEENT: Normal. ENDOCRINE: No weight gain, no weight loss. CVS: No angina symptoms. No CHF symptoms. No palpitations. No atypical chest pain for CAD. No shortness of breath. No PND, no orthopnea. RESPIRATORY: No cough, no hemoptysis. GI: No nausea, no vomiting. No abdominal pain. : No hematuria. No polyuria. MUSCULOSKELETAL: No joint swelling. PSYCHIATRIC: Not anxious. No depression. No suicidal thoughts. No homicidal thoughts. SKIN: Intact. No rash. PHYSICAL EXAMINATION: V/S: BP 152/88, respiratory rate 18, heart rate 64, temperature 97.6. HEENT: Normocephalic, atraumatic. Mucosa dry. NECK: Supple. No JVD, no carotid bruit. No lymphadenopathy. LUNGS: Clear to auscultation. No rales or rhonchi. HEART: S1, S2 normal. No S3. No murmur, gallop or regurgitation. ABDOMEN: Soft, nontender. Bowel sounds active. No rigidity. No rebound or guarding. No CVA tenderness. EXTREMITIES: No pedal edema. No clubbing or cyanosis MUSCULOSKELETAL: No joint swelling. NEUROLOGIC: Awake, alert, oriented times three. No focal deficit. LYMPHATIC: No lymph nodes palpable. SKIN: Intact. LABS: Sodium 142, potassium 3.4, chloride 104, bicarb 28, BUN 12, creatinine 0.83. White count 6.29. Hemoglobin 12.0, hematocrit 37.2, platelet count 147. ASSESSMENT: 1. UNCONTROLLED HYPERTENSION, CT HEAD NEGATIVE 2. OBESITY 3. DYSLIPIDEMIA 4. CAD STATUS POST CATH IN 2014 5. CHOLECYSTECTOMY 6. ARTHRITIS 7. DJD SPINE PLAN: 1. Continue home medication. 2. Out of bed to chair. 3. Replace potassium. 4. Will do exercise blood pressure. 5. Most likely will discharge today if blood pressure is steady. TIME SPENT: More than 35 minutes MTDD
--- NOTE | 2018-02-07 10:55 | DS ---
DATE OF SERVICE: 12/28/17 FINAL DIAGNOSIS: 1. Hypertensive emergency with headache and dizziness 2. Questionable medication noncompliance 3. History of heart cath, [address] Sanches 4. Headaches, recurrent 5. Osteoarthritis 6. Hyperthyroidism 7. Depression 8. Anxiety 9. Osteoarthritis 10.DJD spine DISCHARGE INSTRUCTIONS: Discharge the patient home. Continue current care of medications. No medications were changes. Followup in the [facility] within 4-5 days. MEDICATIONS AT DISCHARGE: Bentyl Isosorbide Lisinopril Lovastatin Meclizine Metoprolol Protonix Carafate DIET INSTRUCTIONS: Cardiac and Healthy diet ACTIVITY: As much as tolerated DISEASE SPECIFIC EDUCATION: Uncontrolled diabetes Risk of coronary artery disease Stroke Been discussed and verbalized understanding. HOSPITAL COURSE: Adilia Shields Delet 62 year old female came to the office with dizziness, headache and light headedness. Blood pressure was more than 180/108 with hypertensive emergency with headache and dizziness. The patient was admitted to the hospital and started on the home medications and given an extra dose of Clonidine 0.2mg. CT of the head obtained and did not show any stroke. Resumed the home medication and by next day blood pressure was better. Came down to 138/ 72, 173/89 and 162/80. Up and about walking and did not have any complications. As the patient doing better and did not have any problems, blood pressure been under control, headache been resolved and CT head was negative the patient was discharged home. The patient seems like forgetful than noncompliant by not taking the pills everyday. She does forget to take on a couple of episodes which we did discuss about the uncontrolled blood pressure and the risk of stroke and verbalized understanding. TIME SPENT: MORE THAN 45 MINUTES MARCELLO
== END 2017-12-28 10:56 | disposition home or self-care (01) ==
LOC: MEDSURG A 10:29
PROVIDERS: ADMIT Emergency Medicine; ATTEND Emergency Medicine
DX: I16.0 Hypertensive urgency (principal); R51 Headache; R42 Dizziness and giddiness; M19.90 Unspecified osteoarthritis, unspecified site; F41.8 Other specified anxiety disorders; M47.9 Spondylosis, unspecified; E66.9 Obesity, unspecified; I25.10 Atherosclerotic heart disease of native coronary artery without angina pectoris; Z91.14 Patient's other noncompliance with medication regimen; Z90.49 Acquired absence of other specified parts of digestive tract; Z79.899 Other long term (current) drug therapy
CPT/HCPCS: 36415; 80053; 80306; 82550; 84484; 85025; 93005; 93010

== ENCOUNTER 2018-01-16 08:14 | Outpatient (CLI) ==
--- NOTE | 2018-01-16 09:28 | CT ---
Exam: CT of the chest without intravenous contrast. Comparison: Chest x-ray performed 06/14. Reason for exam: Short of breath. FINDINGS: No pneumothorax or pleural effusion. There is a 9 mm fissural nodule in the left lower lo be on axial image number 28. Image interpretation is limited by the lack of intravenous contrast admi nistration. The aorta is normal in course and caliber. No suspicious appearing osteoblastic or osteolytic lesion s. The partially imaged upper abdomen appears grossly unremarkable. Impression: 9 mm fissural nodule in the left lower lobe. 6-8 week follow-up is recommended to document stability / resolution.
--- NOTE | 2018-01-16 11:31 | US ---
Exam: Waldron-scale and color Doppler ultrasonographic evaluation of the kidneys and urinary bladder. Comparison: Right upper quadrant ultrasound performed on 06/06/2017. Reason for exam: Hypertension. FINDINGS: Image interpretation is limited by overlying bowel gas with partial obscuration of the rig ht kidney. Image interpretation is limited by body habitus and positioning. The right kidney measures approximately 6.67 x 3.52 x 3.10 cm. No obvious hydronephrosis or large ne phrolithiasis is seen although image interpretation is significantly limited. The left kidney measures approximately 9.14 x 4.24 x 4.09 cm without obvious hydronephrosis or nephro lithiasis although evaluation is limited. The bladder appears grossly unremarkable although evaluation is limited by non distension. The right and left ureteral jets were not seen on the exam. Impression: Extremely limited evaluation of the kidneys and urinary bladder secondary to overlying bowel gas, hab itus, and positioning. No obvious hydronephrosis or large renal stones are seen. If clinical concer n exists, further evaluation may be performed.
--- NOTE | 2018-01-16 12:21 | US ---
EXAM: Renal artery Doppler 01/16/2018 HISTORY: Essential hypertension COMPARISON: None. FINDINGS: Duplex ultrasound including color and spectral Doppler has been performed. Aortic peak systolic velocity at the level of the superior mesenteric artery is 60 cm/sec. Right swapna al artery ostium peak systolic velocity 90 cm second. Right renal aortic ratio 1.5. Left renal artery ostium peak systolic velocity 80 cm/sec. Left renal aortic ratio 1.3. Left-sided renal arteries are obscured at the level of the hilum. At the level of the right hilum peak systolic velocity 110 cm/sec. Renal aortic ratio 1.8. IMPRESSION: Partially limited examination due to overlying bowel gas and body habitus. Peak systolic velocities provided above. There is no evidence of hemodynamically significant renal a rterial stenosis.
== END 2018-01-16 08:15 | disposition home or self-care (01) ==
LOC: RAD 08:14
PROVIDERS: ATTEND Emergency Medicine
DX: E05.90 Thyrotoxicosis, unspecified without thyrotoxic crisis or storm (principal); I10 Essential (primary) hypertension; M47.26 Other spondylosis with radiculopathy, lumbar region; R06.02 Shortness of breath
CPT/HCPCS: 36415; 76770; 80053; 80061; 84443; 85025

== ENCOUNTER 2018-05-08 08:15 | Outpatient (CLI) | payer OTHER ==
--- NOTE | 2018-05-10 07:30 | MAMMO ---
EXAM: Digital screening mammogram with 3-D tomosynthesis and CAD HISTORY: Screening mammogram COMPARISON: Mammogram 03/13/2017 and 02/07/2016 FINDINGS: Bilateral CC and MLO views of the breasts were performed digitally and demonstrate scatter ed fibroglandular breast density. There is a well demarcated mass in the posterior left breast on the MLO measuring 0.6 x 0.8 cm approximately 9.8 cm from the nipple. IMPRESSION: Asymmetric density in the left breast on MLO view RECOMMENDATION: Diagnostic mammogram and potential ultrasound BIRADS category 0: Needs further evaluation
== END 2018-05-08 08:16 | disposition home or self-care (01) ==
LOC: RAD 08:15
PROVIDERS: ATTEND Emergency Medicine
DX: Z12.31 Encounter for screening mammogram for malignant neoplasm of breast (principal)
CPT/HCPCS: 77067

== ENCOUNTER 2018-05-15 08:24 | Outpatient (CLI) ==
--- NOTE | 2018-05-15 09:12 | MAMMO ---
EXAM: Left digital diagnostic mammogram (2-D and 3-D) History: Left breast mass. Comparison: Bilateral mammogram 05/08/2018 Findings: Additional views of the left breast confirm the left axillary soft tissue nodule. No susp icious microcalcifications. Left breast density is scattered. Impression: Indeterminate left axillary soft tissue nodule. Recommend further evaluation with ultra sound. BIRADS 0
--- NOTE | 2018-05-15 09:26 | US ---
EXAM: Left breast ultrasound. History: Left breast nodule. Comparison: Left diagnostic mammogram 05/15/2018 Findings: Multiple sonographic images through the left breast and left axilla were obtained. Color duplex Doppler was used to interrogate vascular flow. Findings: Benign left axillary lymph node measuring 0.8 cm in short axis diameter demonstrating fatt y hilum. No suspicious masses identified. Impression: Benign left axillary lymph node. Recommend followup routine screening mammography in 1 year. BIRADS 2
== END 2018-05-15 08:25 | disposition home or self-care (01) ==
LOC: RAD 08:24
PROVIDERS: ATTEND Emergency Medicine
DX: R92.8 Other abnormal and inconclusive findings on diagnostic imaging of breast (principal)

== ENCOUNTER 2018-05-24 09:50 | Outpatient (CLI) | payer OTHER ==
--- NOTE | 2018-05-24 11:12 | DI ---
EXAM: Radiographs, left knee HISTORY: Left knee pain. COMPARISON: None available. TECHNIQUE: Four views. FINDINGS: Bone mineralization is normal. No fracture or dislocation identified. Mild tricompartmen maria luisa joint space narrowing and marginal osteophyte formation noted. No erosions are seen. Chondrocal cinosis noted in the menisci. No localized soft tissue abnormality detected. IMPRESSION: Mild osteoarthritis and meniscal calcifications.
--- NOTE | 2018-05-24 11:47 | DI ---
EXAM: Radiographs, left ankle HISTORY: Left ankle pain. COMPARISON: None available. TECHNIQUE: Three views. FINDINGS: Bone mineralization is decreased. There is no fracture or dislocation. The joint spaces are maintained. Diffuse soft tissue swelling is present. IMPRESSION: Subcutaneous edema without acute osseous abnormality.
== END 2018-05-24 09:51 | disposition home or self-care (01) ==
LOC: LAB 09:50
PROVIDERS: ATTEND Emergency Medicine
DX: E05.90 Thyrotoxicosis, unspecified without thyrotoxic crisis or storm (principal); I70.90 Unspecified atherosclerosis; I10 Essential (primary) hypertension; M47.26 Other spondylosis with radiculopathy, lumbar region; M25.562 Pain in left knee; M25.572 Pain in left ankle and joints of left foot; G89.29 Other chronic pain
CPT/HCPCS: 36415; 80053; 80061; 84443; 85025

== ENCOUNTER 2018-06-07 10:54 | Inpatient (IN) ==
[2018-06-07 11:50] VITALS: BMI 33.7
[2018-06-07] MEDS ORDERED: VASOTEC IV IVP STA (12:09)
--- NOTE | 2018-06-07 14:04 | CT ---
EXAM: CT of the head without contrast History: Dizziness. Comparison: Head CT 12/26/2017 Technique: Multiplanar CT images through the head were obtained without the administration of IV con trast Findings: The visualized paranasal sinuses and mastoid air cells are clear in general. No acute braulio varial abnormalities. Intracranially the ventricular and cisternal spaces are normal in size, shape and configuration for a patient of this age. No dominant mass or midline shift. No hydrocephalous. No acute intracranial hemorrhage or abnormal extraaxial fluid collections. Stable thick dystrophic calcification along the anterior falx. Impression: No acute intracranial process. No change compared to the prior study.
[2018-06-07] MEDS: BENTYL PO SCH ×2 (15:29→20:37)
[2018-06-07] MEDS: MOBIC PO SCH (17:12)
[2018-06-07] MEDS ORDERED: K-DUR PO STA (17:14)
[2018-06-07] MEDS: MEVACOR PO SCH (20:36)
[2018-06-07] MEDS: LOPRESSOR PO SCH (20:37)
[2018-06-07] MEDS: BUSPAR PO SCH (20:37)
[2018-06-07] MEDS ORDERED: NON-FORMULARY MEDICATION (Lovastatin [Lovastatin] 10 MG) PO SCH (21:00)
[2018-06-07] MEDS ORDERED: NON-FORMULARY MEDICATION (Buspirone Hcl [Buspirone Hcl] 5 MG) PO SCH (21:00)
[2018-06-08] MEDS: PROTONIX PO SCH (05:50)
[2018-06-08] MEDS: BENTYL PO SCH ×3 (08:11→20:28)
[2018-06-08] MEDS: BUSPAR PO SCH ×2 (08:11→20:27)
[2018-06-08] MEDS: MOBIC PO SCH ×2 (08:11→16:54)
[2018-06-08] MEDS: LOPRESSOR PO SCH ×2 (08:11→20:30)
[2018-06-08] MEDS ORDERED: ZESTRIL PO SCH (09:00)
[2018-06-08] MEDS ORDERED: K-DUR PO STA (14:38)
[2018-06-08] MEDS: MEVACOR PO SCH (20:29)
[2018-06-08] MEDS: ZESTRIL PO SCH (20:29)
[2018-06-09] MEDS: PROTONIX PO SCH (05:42)
[2018-06-09] MEDS: BUSPAR PO SCH ×2 (08:08→20:52)
[2018-06-09] MEDS: MOBIC PO SCH ×2 (08:08→16:44)
[2018-06-09] MEDS: BENTYL PO SCH ×3 (08:08→20:50)
[2018-06-09] MEDS: LOPRESSOR PO SCH (08:08)
[2018-06-09] MEDS: ZESTRIL PO SCH ×2 (08:53→20:51)
[2018-06-09] MEDS: MEVACOR PO SCH (20:51)
[2018-06-09] MEDS ORDERED: LOPRESSOR PO SCH (21:00)
[2018-06-10] MEDS: PROTONIX PO SCH (05:34)
[2018-06-10] MEDS: BUSPAR PO SCH ×2 (08:20→20:49)
[2018-06-10] MEDS: MOBIC PO SCH ×2 (08:21→16:35)
[2018-06-10] MEDS: ZESTRIL PO SCH ×2 (08:21→20:49)
[2018-06-10] MEDS: BENTYL PO SCH ×3 (08:21→20:49)
[2018-06-10] MEDS: LOPRESSOR PO SCH ×2 (08:27→20:49)
[2018-06-10] MEDS ORDERED: NORVASC PO SCH (12:00)
[2018-06-10] MEDS ORDERED: VASOTEC IV IVP STA (18:06)
[2018-06-10] MEDS: MEVACOR PO SCH (20:48)
[2018-06-11] MEDS: PROTONIX PO SCH (05:32)
[2018-06-11] MEDS: ZESTRIL PO SCH (08:05)
[2018-06-11] MEDS: BENTYL PO SCH (08:05)
[2018-06-11] MEDS: MOBIC PO SCH (08:05)
[2018-06-11] MEDS: BUSPAR PO SCH (08:05)
[2018-06-11] MEDS: LOPRESSOR PO SCH (08:06)
--- NOTE | 2018-06-11 08:54 | PN ---
DATE OF SERVICE: 06/10/18 SUBJECTIVE: The patient was admitted with hypertension uncontrolled and sinus bradycardia. Metoprolol decreased to 20mg and heart rate is now 57-69. Blood pressure is elevated. We added the Norvasc 10mg in the noon time and still not better. REVIEW OF SYSTEMS: CONSTITUTIONAL: No fever, no chills. HEENT: Normal. ENDOCRINE: No weight gain, no weight loss. CVS: No angina symptoms. No CHF symptoms. No palpitations. No atypical chest pain for CAD. No shortness of breath. No PND, no orthopnea. RESPIRATORY: No cough, no hemoptysis. GI: No nausea, no vomiting. No abdominal pain. : No hematuria. No polyuria. MUSCULOSKELETAL: No joint swelling. PSYCHIATRIC: Not anxious. No depression. No suicidal thoughts. No homicidal thoughts. SKIN: Intact. No rash. PHYSICAL EXAMINATION: V/S: Blood pressure 170/88, respiratory rate 18, heart rate 69 and temperature 98.0 with saturation 97%. HEENT: Normocephalic, atraumatic. Mucosa dry. Pallor positive. No icterus. NECK: Supple. No JVD, no carotid bruit. No lymphadenopathy. LUNGS: Clear to auscultation. No rales or rhonchi. HEART: S1, S2 normal. No S3. No murmur, gallop or regurgitation. ABDOMEN: Soft, nontender. Bowel sounds active. No rigidity. No rebound or guarding. No CVA tenderness. EXTREMITIES: No cyanosis, clubbing or pedal edema. MUSCULOSKELETAL: No joint swelling. NEUROLOGIC: Awake, alert. No focal deficit. LYMPHATIC: No lymph nodes palpable. SKIN: Intact. LABS: Sodium 141, potassium 3.0, chloride 106, bicarb 27, BUN 18, creatinine 0.76, WBC 7.86, hgb 13.2, hct 40.5, plt count 161. ASSESSMENT: 1. Hypertension, uncontrolled 2. Sinus bradycardia 3. Dizziness 4. Osteoarthritis 5. DJD spine 6. Irritable bowel syndrome PLAN: 1. Decrease Metoprolol 25mg twice a day 2. Norvasc 10mg 3. Continue Lisinopril 40mg twice a day 4. Out of bed to chair activity as tolerated 5. No anticoagulation as patient is up and about and walking. TIME SPENT: More than 35 minutes MTDD
[2018-06-11] MEDS: APRESOLINE PO SCH ×2 (09:11→09:12)
[2018-06-11 09:56] VITALS: BP 168/87; TEMP 98.4
--- NOTE | 2018-06-11 15:51 | PN ---
DATE OF SERVICE: 06/09/18 SUBJECTIVE: The patient was admitted with sinus bradycardia, uncontrolled hypertension. Blood pressure been better. Heart rate is again 44-46. The patient is on the Metoprolol 50mg twice a day. Slightly dizzy when she went to the bathroom. REVIEW OF SYSTEMS: CONSTITUTIONAL: No fever, no chills. HEENT: Normal. ENDOCRINE: No weight gain, no weight loss. CVS: No angina symptoms. No CHF symptoms. No palpitations. No atypical chest pain for CAD. No shortness of breath. No PND, no orthopnea. RESPIRATORY: No cough, no hemoptysis. GI: No nausea, no vomiting. No abdominal pain. : No hematuria. No polyuria. MUSCULOSKELETAL: No joint swelling. PSYCHIATRIC: Not anxious. No depression. No suicidal thoughts. No homicidal thoughts. SKIN: Intact. No rash. PHYSICAL EXAMINATION: V/S: Blood pressure 124/70, respiratory rate 18, heart rate 47, temperature 99.6. HEENT: Normocephalic, atraumatic. Mucosa dry. NECK: Supple. No JVD, no carotid bruit. No lymphadenopathy. LUNGS: Clear to auscultation. No rales or rhonchi. HEART: S1, S2 normal. No S3. No murmur, gallop or regurgitation. ABDOMEN: Soft, nontender. Bowel sounds active. No rigidity. No rebound or guarding. No CVA tenderness. EXTREMITIES: No cyanosis, clubbing or pedal edema. MUSCULOSKELETAL: No joint swelling. NEUROLOGIC: Awake, alert. No focal deficit. LYMPHATIC: No lymph nodes palpable. SKIN: Intact. LABS: WBC 7.86, hgb 13.2, hct 40.5, plt count 160, sodium 141, potassium 4.0, chloride 106, bicarb 27, BUN 18, creatinine 0.76 and glucose 91. ASSESSMENT: 1. Uncontrolled hypertension 2. Sinus bradycardia 3. Dizziness 4. Hypertension 5. Dyslipidemia 6. IBS PLAN: 1. Decrease the Metoprolol to 25mg twice a day 2. Continue the Lisinopril 40mg PO daily 3. Out of bed to chair activity as tolerated TIME SPENT: More than 35 minutes MTDD
--- NOTE | 2018-06-11 17:30 | PCM.HOSP ---
- Initial Hospital Care [id number] 70 Minutes Bedside ([id number]): 06/07 - Subsequent Care [id number] 25 Minutes per Day ([id number]): 06/10 [id number] 35 Minutes per Day ([id number]): 06/08. 06/09 - Hospital Discharge [id number] More than 30 Minutes ([id number]): 06/11
--- NOTE | 2018-06-12 15:39 | DS ---
DATE OF SERVICE: 06/11/18 FINAL DIAGNOSIS: 1. Hypertension, uncontrolled 2. Sinus bradycardia secondary to the medications 3. Questionable medication compliance 4. Headache 5. Dizziness 6. Dyslipidemia 7. GERD 8. Hyperthyroidism 9. Osteoarthritis 10.DJD spine 11.Depression 12.IBS 13.Heart cath [address] Sanches was normal 14.Cholecystectomy DISCHARGE INSTRUCTIONS: Discharge the patient home. Followup in the [facility] within 4-5 days. MEDICATIONS AT DISCHARGE: Bentyl Carafate Protonix Lovastatin Buspirone Mobic NEW PRESCRIPTIONS: Hydralazine 25mg twice a day Lisinopril 40mg daily twice a day Metoprolol 25mg twice a day DIET INSTRUCTIONS: Cardiac and healthy ACTIVITY: As much as tolerated DISEASE SPECIFIC EDUCATION: Stroke Uncontrolled hypertension Coronary artery disease been discussed and verbalized understanding. HOSPITAL COURSE: Adilia Shields 62 year old female came to the office complaining of a headache and dizziness. Blood pressure systolic more than 200 and Diastolic of 120. A dose of Norvasc was given at the office and the patient's blood pressure did not change. At that time the patient was admitted directly from the office to the hospital. A dose of Vasotec IV push was given. CT head was negative. Lisinopril made 40mg twice a day, heart rate was around 46 to 50 and was dizzy when she was trying to get up and go to the bathroom so Metoprolol was decreased to the 25mg twice a day. Still blood pressure was elevated at that time Norvasc dose was given. Blood pressure was not able to be controlled. Blood pressure systolic was 161/89 so was decided that we will stop the Norvasc and start the patient on the Hydralazine 25mg twice a day along with Lisinopril 40mg twice a day and Metoprolol 25mg twice a day. Risk of stroke discussed and advised to take aspirin. TIME SPENT: MORE THAN 65 MINUTES MTDD
== END 2018-06-11 12:42 | disposition home or self-care (01) | DRG 103 ==
LOC: MEDSURG B 10:54
PROVIDERS: ADMIT Emergency Medicine; ATTEND Emergency Medicine
DX: R51 Headache (principal); R42 Dizziness and giddiness; E78.5 Hyperlipidemia, unspecified; E05.90 Thyrotoxicosis, unspecified without thyrotoxic crisis or storm; M19.90 Unspecified osteoarthritis, unspecified site; M47.9 Spondylosis, unspecified; K58.9 Irritable bowel syndrome, unspecified; K21.9 Gastro-esophageal reflux disease without esophagitis; F32.9 Major depressive disorder, single episode, unspecified
CPT/HCPCS: 36415; 80053; 80306; 81001; 82550; 84484; 85025; 93005; 93010; 97802

== ENCOUNTER 2018-11-21 10:19 | Outpatient (CLI) | payer OTHER ==
[2018-11-21 11:49] VITALS: BMI 33.6
== END 2018-11-21 10:20 | disposition home or self-care (01) ==
LOC: DIETCN 10:19
PROVIDERS: ATTEND Nurse Practitioner Family
DX: I10 Essential (primary) hypertension (principal); Z68.34 Body mass index [BMI] 34.0-34.9, adult
CPT/HCPCS: 97802

== ENCOUNTER 2018-11-28 09:15 | Outpatient (RCR) | payer OTHER ==
--- NOTE | 2018-11-06 09:45 | RS.OPPTEV2 ---
Date of Note: 11/05/18 Visit #: 1 Number of visits approved by Insurance: n/a Date of Evaluation: 11/05/18 Payer Source: MEDICARE Date of Onset/Injury/Change in Status: 11/01/18 Surgery Performed?: Yes (L knee arthroscopy, partial lateral meniscectomy) Date of Procedure: 11/01/18 Treatment Diagnosis: L knee pain: left lat degenerative meniscus tear History of Condition/Mechanism of Injury:: pt underwent L knee arthroscopy with partial lateral meniscectomy on 11/01/18. pt referred to PT by general practioner. pt with no know definite injury to knee. Prior Level of Function.....Patient was independent with: ADL's, Self Care, Caregiving, Ambulation/Mobility, Community Integration/Access Functional Limitations: Sleep, ADL's, Standing, Bending, Squatting, Ambulation, Community Access/Integration Current Subjective/complaints:: pt states that she is unsure of what kind of surgery she had to her knee. States she has been using quad cane for some time now due to her arthritis. Treatment Side (optional): Left *Precautions: n/a Medical History Medical History: Hypertension, Arthritis Smoking Status: Former smoker Hx Home Medications: No medications listed or reported. Patient's Goals: decreased L knee pain Pain Assessment - Pain Description Pain Location: L knee Pain Description: Aching Current Pain Intensity: 1/10 Worst Pain Intensity: 6/10 Functional Outcome Measure LE Functional Scale: 58 - G Codes & Severity Modifier G Codes & Modifier: n/a Source of G Code score: n/a Observation - Observation Posture: Forward Head, Rounded Shoulders, Decreased Lumbar Lordosis Handedness: Right Girth Measurement Lower: L LE: knee 45.7cm, 10cm below 39.8. RLE : knee 44.7cm , 10 cm below 39.7 Gait - Gait Pattern General Gait Pattern Observation: Antalgic Gait Gait Comments: pt amb with antalgic gait due to L knee pain. Gait speed 0.38 meters per sec, which is consistent with household walker. General Range of Motion: BUE WFL's. RLE WFL's. L hip and ankle WFL's Muscle Strength: R shld flex 3/5, elbow flex/ext 4/5,. LUE shld flex 4-/5, elbow flex/ext 4+/5. RLE 4/5. LLE hip flex 4/5, ankle 4/5. ( MMT limited due to cognitive deficit) Knee ROM: Right WFL's Knee Muscle Strength: Right WFL's - Left Knee ROM Left Knee Extension: -8 Left Knee Flexion: 107 Knee ROM Limitations: Soft Tissue Tightness, Muscle Weakness, Pain - Left Knee Strength Left Knee Extension: 3- Fair- Left Knee Flexion: 3- Fair- Palpation Palpation Findings: Tenderness Comments:: tenderness to palpation L knee Sensation - Sensation Right Upper Extremity: Intact/Normal Left Upper Extremity: Intact/Normal Right Lower Extremity: Intact/Normal Left Lower Extremity: Intact/Normal Balance - Sitting Balance Static Sitting Balance: Normal Dynamic Sitting Balance: Normal - Standing Balance Static Standing Balance: Good Dynamic Standing Balance: Fair - Comments Balance Assessment Comments: gait speed 0.38 - Heat/Cryotherapy Treatment: Cryotherapy Comments:: L knee Interventions - Exercise/Activities/Manual Therapy Exercises/Activities: pt performed AP, QS, SAQ, LAQ x 5 reps Manual Therapy: NA HOME EXERCISE PROGRAM: pt given written HEP including AP, QS, SAQ, LAQ - Charges Timed Code Treatment Minutes: 51 Total Treatment Time: 54 Procedures billed for this date of service:: eval low, ex EVALUATION COMPLEXITY LEVEL EVALUATION COMPLEXITY LEVEL: HISTORY: Low (HTN, OA), EXAM OF BODY SYSTEMS: Medium (ROM, strength, pain, edema.), CLINICAL PRESENTATION: Low, CLINICAL DECISION MAKING: Low Assessment Assessment: pt presents with pain in Lknee s/p arthroscopy with decreased strength, ROM as well as edema. pt also with R shld pain and weakness. Feel pt would benefit from skilled PT for therex, modalities to improve strength balance and gait as well as decrease pain and edema. Patient Education: Home Exercise Program, Education of Plan of Care Rehab Potential: Good Short Term Goals Goal #1: Pt independent with initial HEP. Goal to be met by: 11/19/18 Goal #2: Improve L knee ROM flex 110 ext -2 Goal to be met by: 11/19/18 Goal #3: Improve strength LLE 4- to 4/5 Goal to be met by: 11/19/18 Goal #4: Gait speed 0.6 meters/sec consistent with limited community ambulator Goal to be met by: 11/19/18 Fpc Goals Goal #1: Decreased edema LLE equal to RLE Goal to be met by: 12/03/18 Goal #2: Improve gait speed to 0.8 meters/sec consistent with community ambulator Goal to be met by: 12/03/18 Goal #3: ROM L knee WFL's Goal to be met by: 12/03/18 Goal #4: pt able to perform normal household activities with decreased pain Goal to be met by: 12/03/18 Plan - Treatment to be Provided Procedures: Therapeutic Exercises, Therapeutic Activity, Manual Therapy, Patient Education Modalities: Electrical Stimulation, Ultrasound/Phonophoresis, Class IV Laser, Cryotherapy, Hot Packs - Treatment Plan Frequency: 2-3x week Duration: 4 weeks Dates of Fpc Goals: 12/03/18 Expiration date of current Insurance Approval:: n/a - Treatment Code (1) Left knee pain Code(s): M25.562 - PAIN IN LEFT KNEE Qualifiers: Chronicity: chronic Qualified Code(s): M25.562 - Pain in left knee; G89.29 - Other chronic pain (2) H/O arthroscopy of left knee Code(s): Z98.890 - OTHER SPECIFIED POSTPROCEDURAL STATES (3) Effusion of knee joint, left Code(s): M25.462 - EFFUSION, LEFT KNEE (4) Joint stiffness of knee Qualifiers: Laterality: left Qualified Code(s): M25.662 - Stiffness of left knee, not elsewhere classified (5) Muscle weakness Code(s): M62.81 - MUSCLE WEAKNESS (GENERALIZED)
--- NOTE | 2018-11-07 11:55 | RS.OPPTDN ---
Subjective Date of Note: 11/07/18 Visit #: 2 Number of visits approved by Insurance: Reassess at 10th Date of Evaluation: 11/05/18 Payer Source: MEDICARE Treatment Diagnosis: L knee pain: left lat degenerative meniscus tear Current Subjective/complaints:: Adilia states she just returned to the MD and he has added shoulder pain to her order. OT was recommended, but pt decided she wants to wait until after she gets discharged from PT for her knee to begin because she does not want to be here that long. Patient says she now has a stationary bike at home and she started using it last night. She says it is not as comfortable as ours. She says she uses ice on her knee at home. *Precautions: n/a Interventions - Exercise/Activities/Manual Therapy Exercises/Activities: Patient receives passive hamstring and heel cord stretching for the L LE per c/o tightness and sore. Began general ROM and strengthening to the L LE including: flex/ext, QS, SAQ 1 1/2#, SLR, ball squeezes, hip abd in hooklying with red tband, ham curls and DF with red tband, all 2x10 reps. Stretching with ankle over bolster for extension. Sitting: LAQ x 12. Standing: hip abd x 12. Stationary bike for and retro with intermittent cueing for dir and coordinating LEs x 5 mins. Intermittent discussion of diagnosis and HEP as well as joint mechanics (avoiding twisting at the knee) alternating heat and ice and discussing new order of additional treatment that was later determined she would set up at a later date. Total minutes of Exercise: 38 Manual Therapy: NA HOME EXERCISE PROGRAM: pt given written HEP including AP, QS, SAQ, LAQ - Charges Timed Code Treatment Minutes: 38 Total Treatment Time: 38 Procedures billed for this date of service:: ex3 Assessment: Patient presents with NBQC to the R UE amb slowly to our dept. She uses it appropriately and has no LOB or observed unsteadiness. She has initiated HEP and is using ice on occasion at home. She obtained a stationary bike and has begun to use it. She has some difficulty ish it sometimes. She has soreness and tightness to the L hamstring, but did improve with stretching. She is able to perform all therex with some rest breaks. She should benefit from further ROM and general strengthening to the LLE and then begin OT eval for the shoulder. Patient Education: Education of diagnosis, Body/Joint mechanics, Home Exercise Program, Home Safety, Education of Plan of Care Patient demonstrates compliance with HEP?: Yes (patient has initiated) Short Term Goals Goal #1: Pt independent with initial HEP. Goal to be met by: 11/19/18 Progress towards Goal:: Progressing Goal #2: Improve L knee ROM flex 110 ext -2 Goal to be met by: 11/19/18 Goal #3: Improve strength LLE 4- to 4/5 Goal to be met by: 11/19/18 Goal #4: Gait speed 0.6 meters/sec consistent with limited community ambulator Goal to be met by: 11/19/18 Quality Management Coordinator Goals Goal #1: Decreased edema LLE equal to RLE Goal to be met by: 12/03/18 Goal #2: Improve gait speed to 0.8 meters/sec consistent with community ambulator Goal to be met by: 12/03/18 Goal #3: ROM L knee WFL's Goal to be met by: 12/03/18 Goal #4: pt able to perform normal household activities with decreased pain Goal to be met by: 12/03/18 Plan Dates of Senior Living Goals: 12/03/18 Expiration date of current Insurance Approval:: 12/03/18 PLAN: Patient to continue for therex to the LLE to meet goals of ROM and strength.
--- NOTE | 2018-11-11 15:51 | RS.OPPTDN ---
Subjective Date of Note: 11/11/18 Visit #: 3 Number of visits approved by Insurance: [id number] Date of Evaluation: 11/05/18 Payer Source: MEDICARE Treatment Diagnosis: L knee pain: left lat degenerative meniscus tear Current Subjective/complaints:: Patient c/o stiffness to the L knee. She says she has not had any pain or difficulty with recent exercises here. *Precautions: n/a Pain Assessment - Pain Description Pain Location: Lateral L knee - Heat/Cryotherapy Treatment: Hot Pack (surrounding the L knee (laterally) x 15 mins supine) Interventions - Exercise/Activities/Manual Therapy Exercises/Activities: Patient receives passive hamstring and heel cord stretching for L LE tightness. Stretching with ankle over bolster for knee extension. Continued with general ROM and strengthening to the L LE including: flex/ext, QS, SAQ 1 1/2#, SLR, ball squeezes, hip abd in hooklying with red tband, ham curls and DF with red tband, all 2x10 reps. Sitting: LAQ 1 1/2# x 12. Standing: hip abd and hip flexion x 12. Stationary bike for and retro with intermittent cueing for dir and coordinating LEs x 5 mins. Continued with intermittent discussion of diagnosis and HEP as well as joint mechanics ( avoiding twisting at the knee). Total minutes of Exercise: 38 Manual Therapy: NA HOME EXERCISE PROGRAM: pt given written HEP including AP, QS, SAQ, LAQ - Charges Timed Code Treatment Minutes: 38 Total Treatment Time: 53 Procedures billed for this date of service:: hp, ex3 Assessment: She presents with NBQC on the R UE. Patient ish progressive therex well. She is ish stretching to the L knee for extension with reports of improved mobility and pain in general. Patient Education: Body/Joint mechanics, Home Exercise Program, Education of Plan of Care Patient demonstrates compliance with HEP?: Yes Short Term Goals Goal #1: Pt independent with initial HEP. Goal to be met by: 11/19/18 Progress towards Goal:: Progressing Goal #2: Improve L knee ROM flex 110 ext -2 Goal to be met by: 11/19/18 Progress towards Goal:: Progressing Goal #3: Improve strength LLE 4- to 4/5 Goal to be met by: 11/19/18 Progress towards Goal:: Progressing Goal #4: Gait speed 0.6 meters/sec consistent with limited community ambulator Goal to be met by: 11/19/18 Department Director Goals Goal #1: Decreased edema LLE equal to RLE Goal to be met by: 12/03/18 Goal #2: Improve gait speed to 0.8 meters/sec consistent with community ambulator Goal to be met by: 12/03/18 Goal #3: ROM L knee WFL's Goal to be met by: 12/03/18 Goal #4: pt able to perform normal household activities with decreased pain Goal to be met by: 12/03/18 Plan Dates of Department Director Goals: 12/03/18 Expiration date of current Insurance Approval:: 12/03/18 PLAN: Continue progressing L knee strengthening and ROM to improve knee extension.
--- NOTE | 2018-11-13 10:46 | RS.OPPTDN ---
Subjective Date of Note: 11/13/18 Visit #: 4 Number of visits approved by Insurance: Reassess at 10th Date of Evaluation: 11/05/18 Payer Source: MEDICARE Treatment Diagnosis: L knee pain: left lat degenerative meniscus tear Current Subjective/complaints:: Patient says she went to the ortho yesterday for imaging only. She says she returns to the ortho 11/22/18. She states the L knee seems to be getting better. She says that her R knee is also hurting and may have to have something done for it. *Precautions: n/a Pain Assessment - Pain Description Pain Location: L knee laterally - Heat/Cryotherapy Treatment: Hot Pack (surrounding the L knee (especially to the lateral border)) Interventions - Exercise/Activities/Manual Therapy Exercises/Activities: Patient receives passive hamstring and heel cord stretching for L LE tightness. Stretching with ankle over bolster for knee extension. Continued with general ROM and strengthening to the L LE including: flex/ext, QS, SAQ 2#, SLR, ball squeezes, hip abd in hooklying progressed to green tband, ham curls with red tband and DF with green tband, all 2x10 reps. Finished with more stretching for hamstrings and heel cords. Sitting: LAQ progressed to 2# x 12. Standing: hip abd, ham curls, minisquats, heel raises, hip flexion x 12. Stationary bike for and retro with intermittent cueing for dir and coordinating LEs x 5 mins. Continued with intermittent discussion of diagnosis and HEP as well as joint mechanics (avoiding twisting at the knee). Total minutes of Exercise: 38 Manual Therapy: NA HOME EXERCISE PROGRAM: pt given written HEP including AP, QS, SAQ, LAQ - Charges Timed Code Treatment Minutes: 38 Total Treatment Time: 53 Procedures billed for this date of service:: hp, ex3 Assessment: Patient returned to ortho yesterday for imaging, but will not have results until later this week. She continues with L knee extension limitation, but does ish increased activity in the dept and improved hamstring lengthening during stretches. Patient Education: Education of diagnosis, Body/Joint mechanics, Home Exercise Program, Home Safety, Education of Plan of Care Patient demonstrates compliance with HEP?: Yes Short Term Goals Goal #1: Pt independent with initial HEP. Goal to be met by: 11/19/18 Progress towards Goal:: Progressing Goal #2: Improve L knee ROM flex 110 ext -2 Goal to be met by: 11/19/18 Progress towards Goal:: Progressing Goal #3: Improve strength LLE 4- to 4/5 Goal to be met by: 11/19/18 Progress towards Goal:: Progressing Goal #4: Gait speed 0.6 meters/sec consistent with limited community ambulator Goal to be met by: 11/19/18 Snf Goals Goal #1: Decreased edema LLE equal to RLE Goal to be met by: 12/03/18 Goal #2: Improve gait speed to 0.8 meters/sec consistent with community ambulator Goal to be met by: 12/03/18 Goal #3: ROM L knee WFL's Goal to be met by: 12/03/18 Goal #4: pt able to perform normal household activities with decreased pain Goal to be met by: 12/03/18 Plan Dates of Visual Educator Goals: 12/03/18 Expiration date of current Insurance Approval:: 12/03/18 PLAN: Continue progressive strengthening and improving knee extension for the L LE.
--- NOTE | 2018-11-15 11:30 | RS.OPPTDN ---
Subjective Date of Note: 11/15/18 Visit #: 5 Number of visits approved by Insurance: REassess at 10th Date of Evaluation: 11/05/18 Payer Source: MEDICARE Treatment Diagnosis: L knee pain: left lat degenerative meniscus tear Current Subjective/complaints:: Patient says her pain seems to be a little better. She reports feeling more strength in the L knee, but also says she is hopeful to "have something done to the R knee." *Precautions: n/a - Heat/Cryotherapy Treatment: Hot Pack (surrounding the L knee laterally supine x 15 mins) Interventions - Exercise/Activities/Manual Therapy Exercises/Activities: Patient receives passive hamstring and heel cord stretching for L LE tightness. Stretching with ankle over bolster for knee extension. Continued with general ROM and strengthening to the L LE including: flex/ext, QS(3x10), SAQ 2# (3x10), SLR, ball squeezes, hip abd in hooklying progressed to green tband, ham curls with green tband and DF with green tband, all 2x10 reps. Finished with more stretching for hamstrings and heel cords. Sitting: LAQ progressed to 2# x 12. Stationary bike for and retro with intermittent cueing for dir and coordinating LEs x 5 mins. Encouraged HEP to stretch the L knee to gain extension. Total minutes of Exercise: 34 Manual Therapy: NA HOME EXERCISE PROGRAM: pt given written HEP including AP, QS, SAQ, LAQ - Charges Timed Code Treatment Minutes: 34 Total Treatment Time: 49 Procedures billed for this date of service:: hp, ex2 Assessment: Patient demo improved WBing on the L LE also showing increased knee extension as she is having less pain. She demo improved ish to extension stretching today as well. Patient Education: Body/Joint mechanics, Home Exercise Program Patient demonstrates compliance with HEP?: Yes Short Term Goals Goal #1: Pt independent with initial HEP. Goal to be met by: 11/19/18 Progress towards Goal:: Progressing Goal #2: Improve L knee ROM flex 110 ext -2 Goal to be met by: 11/19/18 Progress towards Goal:: Partially Met Comments:: Patient has met the flexion portion of this goal Goal #3: Improve strength LLE 4- to 4/5 Goal to be met by: 11/19/18 Progress towards Goal:: Progressing Goal #4: Gait speed 0.6 meters/sec consistent with limited community ambulator Goal to be met by: 11/19/18 Progress towards Goal:: Progressing Comments:: Pt observably is walking faster due to improved pain level/WBing Nursing Home Goals Goal #1: Decreased edema LLE equal to RLE Goal to be met by: 12/03/18 Goal #2: Improve gait speed to 0.8 meters/sec consistent with community ambulator Goal to be met by: 12/03/18 Goal #3: ROM L knee WFL's Goal to be met by: 12/03/18 Goal #4: pt able to perform normal household activities with decreased pain Goal to be met by: 12/03/18 Plan Dates of Nursing Home Goals: 12/03/18 Expiration date of current Insurance Approval:: 12/03/18 PLAN: Patient to continue receiving progressive ROM/strengthening to the L LE to meet goals.
--- NOTE | 2018-11-19 11:01 | RS.OPPTDN ---
Subjective Date of Note: 11/19/18 Visit #: 6 Number of visits approved by Insurance: Reassess at 10th Date of Evaluation: 11/05/18 Payer Source: MEDICARE Treatment Diagnosis: L knee pain: left lat degenerative meniscus tear Current Subjective/complaints:: Patient says she can tell she is able to get up from her bed and chair easier. She says pain is still there, but feels it is mostly due to the cold weather. *Precautions: n/a - Heat/Cryotherapy Treatment: Hot Pack (L knee, focused laterally x 15 mins in supine) Interventions - Exercise/Activities/Manual Therapy Exercises/Activities: Patient receives passive hamstring and heel cord stretching for L LE tightness. Stretching with ankle over bolster for knee extension. Continued with general ROM and strengthening to the L LE including: flex/ext, QS(3x10), SAQ increased to 3# (3x10), SLR increased to 1 1/2#, ball squeezes, hip abd in hooklying progressed to green tband, ham curls with green tband and DF with green tband, all 2x10 reps. Finished with more stretching for hamstrings and heel cords. Sitting: LAQ progressed to 3# x 12. Standing at railing: hip abd, flexion, knee curls with 2 1/2# on L x 12. Minisquats 2x5. Stationary bike for and retro with intermittent cueing for dir and coordinating LEs x 5 mins. Encouraged HEP to stretch the L knee to gain extension. Patient continues to amb with NBQC on the R intermittently carrying it. Total minutes of Exercise: 34 Manual Therapy: NA HOME EXERCISE PROGRAM: pt given written HEP including AP, QS, SAQ, LAQ - Charges Timed Code Treatment Minutes: 34 Total Treatment Time: 49 Procedures billed for this date of service:: hp, ex2 Assessment: Patient acknowledges improvement with getting up/down from chair/ bed with therapy. She is unsure if pain has improved, but does demo improved knee extension and flexion is now WNL actively. At present, patient admits much of her pain is related to cold weather. Patient demonstrates compliance with HEP?: Yes Short Term Goals Goal #1: Pt independent with initial HEP. Goal to be met by: 11/19/18 Progress towards Goal:: Progressing Goal #2: Improve L knee ROM flex 110 ext -2 Goal to be met by: 11/19/18 Progress towards Goal:: Partially Met Comments:: Patient has met flexion goal Goal #3: Improve strength LLE 4- to 4/5 Goal to be met by: 11/19/18 Progress towards Goal:: Progressing Goal #4: Gait speed 0.6 meters/sec consistent with limited community ambulator Goal to be met by: 11/19/18 Progress towards Goal:: Progressing Group Home Goals Goal #1: Decreased edema LLE equal to RLE Goal to be met by: 12/03/18 Goal #2: Improve gait speed to 0.8 meters/sec consistent with community ambulator Goal to be met by: 12/03/18 Goal #3: ROM L knee WFL's Goal to be met by: 12/03/18 Goal #4: pt able to perform normal household activities with decreased pain Goal to be met by: 12/03/18 Plan Dates of Ice Cream Chef Goals: 12/03/18 Expiration date of current Insurance Approval:: 12/03/18 PLAN: Continue for progressive ROM and strengthening to the L knee.
--- NOTE | 2018-11-21 10:37 | RS.OPPTDN ---
Subjective Date of Note: 11/21/18 Visit #: 7 Number of visits approved by Insurance: Reassess at 10th Date of Evaluation: 11/05/18 Payer Source: MEDICARE Treatment Diagnosis: L knee pain: left lat degenerative meniscus tear Current Subjective/complaints:: Patient says her knee is able to straighten better. She says she continues to work on exercises. She says she will return to the MD tomorrow regarding her R knee. She is anticipating arthroscopic procedure for the the R. *Precautions: n/a - Heat/Cryotherapy Treatment: Hot Pack (surrounding the L knee in extension stretch position supine x 15 mins) Interventions - Exercise/Activities/Manual Therapy Exercises/Activities: Patient receives passive hamstring and heel cord stretching for L LE tightness. Stretching with ankle over bolster for knee extension. Continued with general ROM and strengthening to the L LE including: flex/ext, QS(3x10), SAQ 3# (3x10), SLR 1 1/2#, ball squeezes, hip abd in hooklying progressed to green tband, ham curls with green tband and DF with blue tband, all 2x10 reps. Finished with more stretching for hamstrings and heel cords. Sitting: LAQ progressed to 3# x 12. Standing at railing: hip abd, flexion, knee curls with 2 1/2# on L x 12. Minisquats 2x5. Stationary bike for and retro with intermittent cueing for dir and coordinating LEs x 5 mins. Encouraged HEP to stretch the L knee to gain extension. Patient continues to amb with NBQC on the R intermittently carrying it. Total minutes of Exercise: 34 Manual Therapy: NA HOME EXERCISE PROGRAM: pt given written HEP including AP, QS, SAQ, LAQ - Charges Timed Code Treatment Minutes: 34 Total Treatment Time: 49 Procedures billed for this date of service:: hp, ex2 Assessment: Patient demo improved ease with all therex even with adding resistance. She demo increased ROM to -2 to 115 degrees for the L. She continues to have mild to moderate pain intermittently, but she also adds that pain has improved overall. She anticipates a scope for the R knee after tomorrows appt with ortho. She demo near stumble walking out of the dept to registration. She eaily regained, but admits she does this sometimes. Patient Education: Education of diagnosis, Body/Joint mechanics, Home Exercise Program Patient demonstrates compliance with HEP?: Yes Short Term Goals Goal #1: Pt independent with initial HEP. Goal to be met by: 11/19/18 Progress towards Goal:: Met Goal #2: Improve L knee ROM flex 110 ext -2 Goal to be met by: 11/19/18 Progress towards Goal:: Met Comments:: demo today Goal #3: Improve strength LLE 4- to 4/5 Goal to be met by: 11/19/18 Progress towards Goal:: Met Goal #4: Gait speed 0.6 meters/sec consistent with limited community ambulator Goal to be met by: 11/19/18 Progress towards Goal:: Progressing Comments:: Reassess next week Copy Operator Goals Goal #1: Decreased edema LLE equal to RLE Goal to be met by: 12/03/18 Progress towards goal: Progressing Goal #2: Improve gait speed to 0.8 meters/sec consistent with community ambulator Goal to be met by: 12/03/18 Goal #3: ROM L knee WFL's Goal to be met by: 12/03/18 Progress towards goal: Progressing Goal #4: pt able to perform normal household activities with decreased pain Goal to be met by: 12/03/18 Progress towards goal: Progressing Plan Dates of Copy Operator Goals: 12/03/18 Expiration date of current Insurance Approval:: 12/03/18 PLAN: Continue for therex to focus on L knee ROM goal and strengthen for safer ambulation.
--- NOTE | 2018-11-26 10:37 | RS.OPPTDN ---
Subjective Date of Note: 11/26/18 Visit #: 8 Number of visits approved by Insurance: REassess at 10th Date of Evaluation: 11/05/18 Payer Source: MEDICARE Treatment Diagnosis: L knee pain: left lat degenerative meniscus tear Current Subjective/complaints:: Patient says that she will be having a scope to the R knee on 12/10/18. She has to have pre-op work next Sunday. She reports obtaining a brace for the L knee and wears it mostly when she gets away from the house. States L knee is hurting more today, but feels it is due to the drop in temperature. She says she is generally better regarding the L knee and feels it is straighter. *Precautions: n/a - Heat/Cryotherapy Treatment: Hot Pack ( surrounding the L knee supine) Interventions - Exercise/Activities/Manual Therapy Exercises/Activities: Patient receives passive hamstring and heel cord stretching for L LE tightness. Stretching with ankle over bolster for knee extension. Continued with general ROM and strengthening to the L LE including: flex/ext, QS(3x10), SAQ 3# (3x10), SLR 1 1/2#, ball squeezes, hip abd in hooklying progressed to green tband, ham curls with green tband and DF with blue tband, all 2x10 reps. Finished with more stretching for hamstrings and heel cords. Sitting: LAQ progressed to 3# x 12. Standing at railing: hip abd, flexion, knee curls with 2 1/2# on L x 12. Step board for step ups/downs with initial prompts for sequence using 1 handrail x 10. Began leg press 15# bilaterally 2x12 reps. Patient is performing stationary bike at home ~1 hour a day, so it was not utilized here. Encouraged HEP to stretch the L knee to gain extension. Patient continues to amb with NBQC on the R intermittently carrying it. Total minutes of Exercise: 38 Manual Therapy: NA HOME EXERCISE PROGRAM: pt given written HEP including AP, QS, SAQ, LAQ - Charges Timed Code Treatment Minutes: 38 Total Treatment Time: 53 Procedures billed for this date of service:: hp, ex3 Assessment: Patient demo consistent improvement with L knee extension to -2 degrees. She presents with knee sleeve for the L providing pain relief. She will be having pre-op work for her other knee on Nov 4 and surgery on Nov 12. Patient appears more steady with steps ups/downs and demo improved control with less fatigue during SLR. Patient demonstrates compliance with HEP?: Yes Short Term Goals Goal #1: Pt independent with initial HEP. Goal to be met by: 11/19/18 Progress towards Goal:: Met Goal #2: Improve L knee ROM flex 110 ext -2 Goal to be met by: 11/19/18 Progress towards Goal:: Met Goal #3: Improve strength LLE 4- to 4/5 Goal to be met by: 11/19/18 Progress towards Goal:: Met Goal #4: Gait speed 0.6 meters/sec consistent with limited community ambulator Goal to be met by: 11/19/18 Progress towards Goal:: Progressing Sizing Sponger Goals Goal #1: Decreased edema LLE equal to RLE Goal to be met by: 12/03/18 Progress towards goal: Progressing Goal #2: Improve gait speed to 0.8 meters/sec consistent with community ambulator Goal to be met by: 12/03/18 Goal #3: ROM L knee WFL's Goal to be met by: 12/03/18 Progress towards goal: Progressing Goal #4: pt able to perform normal household activities with decreased pain Goal to be met by: 12/03/18 Progress towards goal: Progressing Plan Dates of Sizing Sponger Goals: 12/03/18 Expiration date of current Insurance Approval:: 12/03/18 PLAN: Patient to continue with progressive strengthening x 1 more week and reassess functional index and gait speed.
--- NOTE | 2018-11-28 11:08 | RS.OPPTDN ---
Subjective Date of Note: 11/28/18 Visit #: 9 Number of visits approved by Insurance: 12, Reassess at 10th Date of Evaluation: 11/05/18 Payer Source: MEDICARE Treatment Diagnosis: L knee pain: left lat degenerative meniscus tear Current Subjective/complaints:: Patient says she is feeling her L knee is gaining strength and it is better to walk, but maintains same type issues to the R knee. She says she is working on HEP while performing house chores. *Precautions: n/a - Heat/Cryotherapy Treatment: Hot Pack (wrapped around the L knee in extension stretch position x 15 mins supine) Interventions - Exercise/Activities/Manual Therapy Exercises/Activities: Patient receives passive hamstring and heel cord stretching for L LE tightness. Patellar mobs, stretching with ankle over bolster for knee extension. Continued with general ROM and strengthening to the L LE including: flex/ext, QS(3x10), SAQ 3# (3x10), SLR 1 1/2#, ball squeezes, hip abd in hooklying progressed to green tband, ham curls with green tband and DF with blue tband, all 2x10 reps. Finished with more stretching for hamstrings and heel cords. Sitting: LAQ progressed to 3# x 12. Standing at railing: hip abd, flexion, knee curls with 2 1/2# on L x 12. Step board for step ups/downs with initial prompts for sequence using 1 handrail x 10. Continued with leg press 15# bilaterally, then 30# 2x12 reps. Progressed hip abd to blue tband for home. Encouraged HEP to stretch the L knee to gain extension. Patient continues to amb with NBQC on the R intermittently carrying it. Total minutes of Exercise: 38 Manual Therapy: NA HOME EXERCISE PROGRAM: pt given written HEP including AP, QS, SAQ, LAQ - Charges Timed Code Treatment Minutes: 38 Total Treatment Time: 53 Procedures billed for this date of service:: hp, ex3 Assessment: Patient demo full L knee active flexion comparable to the R, EXT -3 consistently, but 0 passively and with active QS. She continues to gain strength to the L LE with PT sessions, consistently performing HEP. She is scheduled for pre-op work for the R knee scope procedure and should continue x 1 more session per order/Medicare approval dates next week. She amb with NBQC on the R. Patient Education: Education of diagnosis, Body/Joint mechanics, Home Exercise Program, Education of Plan of Care Patient demonstrates compliance with HEP?: Yes Short Term Goals Goal #1: Pt independent with initial HEP. Goal to be met by: 11/19/18 Progress towards Goal:: Met Goal #2: Improve L knee ROM flex 110 ext -2 Goal to be met by: 11/19/18 Progress towards Goal:: Met Goal #3: Improve strength LLE 4- to 4/5 Goal to be met by: 11/19/18 Progress towards Goal:: Met Goal #4: Gait speed 0.6 meters/sec consistent with limited community ambulator Goal to be met by: 11/19/18 Progress towards Goal:: Progressing Comments:: Verify next session Applied Psychology Teacher Goals Goal #1: Decreased edema LLE equal to RLE Goal to be met by: 12/03/18 Progress towards goal: Progressing Goal #2: Improve gait speed to 0.8 meters/sec consistent with community ambulator Goal to be met by: 12/03/18 Comments: Verify next session Goal #3: ROM L knee WFL's Goal to be met by: 12/03/18 Progress towards goal: Partially Met (Met for knee flexion, remains with slight limitation to the L) Goal #4: pt able to perform normal household activities with decreased pain Goal to be met by: 12/03/18 Progress towards goal: Progressing Plan Dates of Applied Psychology Teacher Goals: 12/03/18 Expiration date of current Insurance Approval:: 12/03/18 PLAN: Patient to attend 1 more session. Reassess goals and Functional Index.
== END 2018-11-28 23:59 | disposition short-term general hospital (02) ==
PROVIDERS: ATTEND Nurse Practitioner Family
DX: M25.562 Pain in left knee (principal); G89.29 Other chronic pain; M25.462 Effusion, left knee; Z98.890 Other specified postprocedural states; M62.81 Muscle weakness (generalized); M25.662 Stiffness of left knee, not elsewhere classified; M25.511 Pain in right shoulder; M47.26 Other spondylosis with radiculopathy, lumbar region

== ENCOUNTER 2018-12-03 09:21 | Outpatient (RCR) ==
--- NOTE | 2018-12-03 10:49 | RS.OPPTDN ---
Subjective Date of Note: 12/03/18 Visit #: 10 Number of visits approved by Insurance: 12 Date of Evaluation: 11/05/18 Payer Source: MEDICARE Treatment Diagnosis: L knee pain: left lat degenerative meniscus tear Current Subjective/complaints:: Patient says the damp weather is affecting her knees. She says she is anticipating her scope for the R knee soon. She says it seems like her swelling is decreasing. *Precautions: n/a - Heat/Cryotherapy Treatment: Hot Pack (surrounding the L knee in supine in extension stretch position x 15 mins) Interventions - Exercise/Activities/Manual Therapy Exercises/Activities: Patient receives passive hamstring and heel cord stretching for L LE tightness. Patellar mobs, stretching with ankle over bolster for knee extension. Continued with general ROM and strengthening to the L LE including: flex/ext, QS(3x10), SAQ 3# (3x10), SLR 1 1/2#, ball squeezes, hip abd in hooklying green tband, ham curls with green tband and DF with blue tband, all 2x10 reps. Finished with more stretching for hamstrings and heel cords. Sitting: LAQ progressed to 3# x 12. Assisted patient with LE Function Continued with leg press 15# bilaterally, then 30# 2x12 reps. Encouraged HEP to stretch the L knee to gain extension. Patient continues to amb with NBQC on the R intermittently carrying it. Total minutes of Exercise: 38 Manual Therapy: NA HOME EXERCISE PROGRAM: pt given written HEP including AP, QS, SAQ, LAQ - Charges Timed Code Treatment Minutes: 38 Total Treatment Time: 53 Procedures billed for this date of service:: hp, ex3 Assessment: Patient maintains mild swelling that is intermittent (pt admits relating to weather changes) to the L LE extending to the ankle. She demo -2 to -3 degrees extension on average, but with QS she is able to achieve 0 degrees. Flexion is WNL. She will be having arthroscope to the R knee next Sunday. LE Functional Index has improved by 4 points with difficulty remaining in prolonged standing and ambulation. She has benefited in overal pain level and daily light tasks around her home. Patient Education: Body/Joint mechanics, Home Exercise Program, Education of Plan of Care Patient demonstrates compliance with HEP?: Yes Short Term Goals Goal #1: Patient Independent with initial HEP Goal to be met by: 11/19/18 Progress towards Goal:: Met Goal #2: Improve L knee ROM Flexion 110 ext -2 Goal to be met by: 11/19/18 Progress towards Goal:: Met Comments:: demo today at final visit (-2 to -3 avg, with QS 0 degrees) Full knee flex Goal #3: Improve strength L LE 4- to 4/5 Goal to be met by: 11/19/18 Progress towards Goal:: Met Comments:: measured today Goal #4: Gait speed 0.6 meters/sec consistent with limited community ambulator Goal to be met by: 11/19/18 Progress towards Goal:: Met Comments:: measured today Jail Goals Goal #1: Decrease edema L LE equal to the R Goal to be met by: 12/03/18 Progress towards goal: Progressing Comments: Intermittently mild to the L LE extending to the ankle Goal #2: Improve gait speed to 0.8 meters/sec consistent with community ambulator Goal to be met by: 12/03/18 Progress towards goal: Progressing Goal #3: ROM L knee WFL's Goal to be met by: 12/03/18 Progress towards goal: Partially Met (Met for knee flexion, remains with slight limitation to the L) Goal #4: Patient able to perform normal household activities with decreased pain Goal to be met by: 12/03/18 Progress towards goal: Met Comments: tasks are easier, but still has difficulty with prolonged stand/amb Plan Dates of Carpet Measurer Goals: 12/03/18 Expiration date of current Insurance Approval:: 12/03/18 PLAN: Patient has completed order at this time and is preparing for upcoming scope to the R knee.
--- NOTE | 2018-12-06 14:00 | RS.OPPTDC ---
Date of Discharge: 12/03/18 Date of Evaluation: 11/05/18 Number of Visits: 10 Treatment Diagnosis: L knee pain: left lat degenerative meniscus tear Current Level of Function: pt demonstrates improvement with LE functional score. L knee flex 117 ext 0. pt ascend/descend steps with handrail. Current Complaints/Gains: pt reports improved strength and stability to L knee. pt states she is performing HEP and limited ADL's and client account assistant independently. pt is having scope on R knee next week Functional Outcome Measure - G Codes & Severity Modifier G Codes & Modifier: n/a Source of G Code score: n/a Observation - Observation Posture: Forward Head, Rounded Shoulders Gait - Gait Pattern General Gait Pattern Observation: Antalgic Gait Interventions - Exercise/Activities/Manual Therapy Exercises/Activities: n/a. Manual Therapy: NA HOME EXERCISE PROGRAM: pt given written HEP including AP, QS, SAQ, LAQ - Charges Timed Code Treatment Minutes: n/a Total Treatment Time: n/a Procedures billed for this date of service:: n/a Assessment Assessment: pt met all STG's and progressing toward LTG's. pt reports she is independent with HEP. Patient Education: Home Exercise Program, Education of Plan of Care Rehab Potential: Good Short Term Goals Goal #1: Patient Independent with initial HEP Goal to be met by: 11/19/18 Progress towards Goal:: Met Goal #2: Improve L knee ROM Flexion 110 ext -2 Goal to be met by: 11/19/18 Progress towards Goal:: Met Goal #3: Improve strength L LE 4- to 4/5 Goal to be met by: 11/19/18 Progress towards Goal:: Met Goal #4: Gait speed 0.6 meters/sec consistent with limited community ambulator Goal to be met by: 11/19/18 Progress towards Goal:: Met Assistant Winemaker Goals Goal #1: Decrease edema L LE equal to the R Goal to be met by: 12/03/18 Progress towards goal: Progressing Goal #2: Improve gait speed to 0.8 meters/sec consistent with community ambulator Goal to be met by: 12/03/18 Progress towards goal: Progressing Goal #3: ROM L knee WFL's Goal to be met by: 12/03/18 Progress towards goal: Partially Met (Met for knee flexion, remains with slight limitation to the L) Goal #4: Patient able to perform normal household activities with decreased pain Goal to be met by: 12/03/18 Progress towards goal: Met Plan Reason for Discharge:: Maximum Potential Met
== END 2018-12-26 23:59 ==
PROVIDERS: ATTEND Nurse Practitioner Family
DX: M25.562 Pain in left knee (principal); M25.511 Pain in right shoulder; M47.26 Other spondylosis with radiculopathy, lumbar region; M25.462 Effusion, left knee; M25.662 Stiffness of left knee, not elsewhere classified; G89.29 Other chronic pain; M62.81 Muscle weakness (generalized); Z98.890 Other specified postprocedural states

== ENCOUNTER 2019-04-17 11:47 | Outpatient (CLI) | END 2019-04-17 11:48 | disposition home or self-care (01) | LOC: RHC-LAB 11:47 → FCC-LAB 11:48 | PROVIDERS: ATTEND Family Medicine | DX: I10 Essential (primary) hypertension (principal); Z47.1 Aftercare following joint replacement surgery; Z96.651 Presence of right artificial knee joint; M25.561 Pain in right knee; M25.661 Stiffness of right knee, not elsewhere classified; R26.9 Unspecified abnormalities of gait and mobility | CPT/HCPCS: 36415; 80053; 80061 ==

== ENCOUNTER 2019-05-30 10:00 | Outpatient (RCR) | payer OTHER ==
--- NOTE | 2019-05-29 11:30 | RS.OPPTDN ---
Subjective Date of Note: 05/29/19 Visit #: 16 Number of visits approved by Insurance: na Date of Evaluation: 04/14/19 Payer Source: MEDICARE Treatment Diagnosis: Right knee pain Current Subjective/complaints:: Patient continues to reports she walks alot when asked about her HEP.We again discussed the limited knee flexion ,and to focus more on stretches.She replies , " It hurts too much when I bend it alot , tomthangw is my last day and I hope the does not order more therapy. " *Precautions: n/a Pain Assessment - Pain Description Pain Location: R knee Pain Description: Tightness, Dull, Aching, Chronic Current Pain Intensity: 2-3 - Heat/Cryotherapy Treatment: Hot Pack (20 mins. prior to exercises) Interventions - Exercise/Activities/Manual Therapy Exercises/Activities: 30 mins. total ,multiple reps of passive stretches for flexion /extension,contract-relax,joint mobs,patellar mobs.Supine stretch for flexion is 88-89 degrees,increases to 95 degrees in seated position.Passive extension is -10 to -7 today.Active extension is -15 in supine or seated. Total minutes of Exercise: 30 Manual Therapy: NA Total minutes of Manual Therapy: 0 HOME EXERCISE PROGRAM: quad sets, SLR's, SAQ's, supine heelslides and standing HS curls. Passive extension hangs, heel slides while sitting in straight-back kitchen chair. - Charges Timed Code Treatment Minutes: 30 Total Treatment Time: 50 Procedures billed for this date of service:: hp,ex 2 Assessment: No change ,has actually increased tightness in the quads and hamstrings ,firm endfeel ,reports pain past 90 degrees flexion.Discussed at length the HEP ,and patient continues to focus on the amount she walks.I explained again that walking only requires minimal flexion for the foot to clear the floor,needs mch more flexion for safe ADL's. Patient Education: Body/Joint mechanics, Home Exercise Program, Activity Modification, Education of Plan of Care Patient demonstrates compliance with HEP?: Yes (minimal,lost motion the past 2- 3 visits) Short Term Goals Goal #1: Patient Independent and compliant with initial HEP Goal to be met by: 05/23/19 Progress towards Goal:: No Change Goal #2: Improve L knee ROM Flexion 105 to ext -5 Goal to be met by: 05/23/19 (goal modified) Progress towards Goal:: No Change (extension improved ,no change in flexion) Goal #3: Pt will demo good heelstrike consistently with gait in department. Goal to be met by: 05/23/19 Progress towards Goal:: Met Goal #4: Pt to demonstrate 4+/5 right quad strength. Goal to be met by: 04/28/19 Progress towards Goal:: Met Medical Technologist Microbiology Goals Goal #1: Pt knows HEP and to continue ex's to maintain functional level at D/C. Goal to be met by: 05/30/19 Progress towards goal: No Change Goal #2: Score on LE functional scale improved to 50/80. Goal to be met by: 05/30/19 Goal #3: Pt to amb. without device community distances and min. gait deviations. Goal to be met by: 05/30/19 Progress towards goal: Partially Met (reports walking in home more without the walker,demonstrates here and is antalgic) Goal #4: pt report able to stand to perform light duties such as washing dishes Goal to be met by: 05/30/19 Progress towards goal: Met (Reports cooking a meal at home.) Plan Dates of Half-Way Goals: 05/30/19 Expiration date of current Insurance Approval:: 05/30/19 PLAN: Cont. skilled PT one more session ,discuss patient status with PT , initiate D/C plan.
--- NOTE | 2019-05-30 11:25 | RS.OPPTDN ---
Subjective Date of Note: 05/30/19 Visit #: 17 Number of visits approved by Insurance: na Date of Evaluation: 04/14/19 Payer Source: MEDICARE Treatment Diagnosis: Right knee pain Current Subjective/complaints:: No c/o,reports she is satisfied with the R knee ,but again reminded for her to focus on the flexion ,as it is functional ,but tight. *Precautions: n/a Pain Assessment - Pain Description Pain Location: R knee Current Pain Intensity: 2 at rest - Heat/Cryotherapy Treatment: Hot Pack (20 mins. prior to stretches) Interventions - Exercise/Activities/Manual Therapy Exercises/Activities: 25 mins. total ,multiple reps of passive stretches for flexion /extension,contract-relax,joint mobs,patellar mobs.Seated stretch for flexion is 90 - 93 degrees.Passive extension is -10 to -7 today.Active extension is -15 in supine or seated. Total minutes of Exercise: 30 Manual Therapy: NA Total minutes of Manual Therapy: 0 HOME EXERCISE PROGRAM: quad sets, SLR's, SAQ's, supine heelslides and standing HS curls. Passive extension hangs, heel slides while sitting in straight-back kitchen chair. - Charges Timed Code Treatment Minutes: 25 Total Treatment Time: 45 Procedures billed for this date of service:: hp,ex 2 Assessment: Patient has met rehab potential ,no significant increase in knee flexion since manipulation due to patient's limited pain tolerance and possiblr inconsistency fo doing the HEP. Patient Education: Home Exercise Program Short Term Goals Goal #1: Patient Independent and compliant with initial HEP Goal to be met by: 05/23/19 Progress towards Goal:: No Change Goal #2: Improve L knee ROM Flexion 105 to ext -5 Goal to be met by: 05/23/19 (goal modified) Progress towards Goal:: No Change (extension improved ,no change in flexion) Goal #3: Pt will demo good heelstrike consistently with gait in department. Goal to be met by: 05/23/19 Progress towards Goal:: Met Goal #4: Pt to demonstrate 4+/5 right quad strength. Goal to be met by: 04/28/19 Progress towards Goal:: Met Air Quality Engineer Goals Goal #1: Pt knows HEP and to continue ex's to maintain functional level at D/C. Goal to be met by: 05/30/19 Progress towards goal: No Change Goal #2: Score on LE functional scale improved to 50/80. Goal to be met by: 05/30/19 Progress towards goal: Progressing (minimally) Goal #3: Pt to amb. without device community distances and min. gait deviations. Goal to be met by: 05/30/19 Progress towards goal: Partially Met (reports walking in home more without the walker,demonstrates here and is antalgic) Goal #4: pt report able to stand to perform light duties such as washing dishes Goal to be met by: 05/30/19 Progress towards goal: Met (Reports cooking a meal at home.) Plan Dates of Air Quality Engineer Goals: 05/30/19 Expiration date of current Insurance Approval:: 05/30/19 PLAN: D/C
--- NOTE | 2019-06-03 09:33 | RS.OPPTDC ---
Date of Discharge: 05/30/19 Date of Evaluation: 04/14/19 Number of Visits: 17 Treatment Diagnosis: Right knee pain Current Level of Function: R knee flex 90-95 pt has elevated pain with quad stretch >90. pt amb with rwx independently. pt amb with decreased heel strike/ toe off gait pattern. pt amb with R knee flex. Current Complaints/Gains: pt is pleased with her walking, and is agreeable to DC. pt states she does her HEP as tolerated. Functional Outcome Measure LE Functional Scale: 19 (pt presents higher however has difficulty answering questions) - G Codes & Severity Modifier G Codes & Modifier: n/a Source of G Code score: n/a Interventions - Exercise/Activities/Manual Therapy Exercises/Activities: n/a Manual Therapy: NA HOME EXERCISE PROGRAM: quad sets, SLR's, SAQ's, supine heelslides and standing HS curls. Passive extension hangs, heel slides while sitting in straight-back kitchen chair. - Charges Timed Code Treatment Minutes: n/a Total Treatment Time: n/a Procedures billed for this date of service:: n/a Assessment Assessment: pt has met STG 3, 4 and LTG 4. pt progressing slowly toward remaining goals. pt limited due to cognitive deficits Patient Education: Home Exercise Program, Education of Plan of Care Rehab Potential: Good Short Term Goals Goal #1: Patient Independent and compliant with initial HEP Goal to be met by: 05/23/19 Progress towards Goal:: No Change Goal #2: Improve L knee ROM Flexion 105 to ext -5 Goal to be met by: 05/23/19 (goal modified) Progress towards Goal:: No Change (extension improved ,no change in flexion) Goal #3: Pt will demo good heelstrike consistently with gait in department. Goal to be met by: 05/23/19 Progress towards Goal:: Met Goal #4: Pt to demonstrate 4+/5 right quad strength. Goal to be met by: 04/28/19 Progress towards Goal:: Met Supervisor Spring Up Goals Goal #1: Pt knows HEP and to continue ex's to maintain functional level at D/C. Goal to be met by: 05/30/19 Progress towards goal: No Change Goal #2: Score on LE functional scale improved to 50/80. Goal to be met by: 05/30/19 Progress towards goal: Progressing (minimally) Goal #3: Pt to amb. without device community distances and min. gait deviations. Goal to be met by: 05/30/19 Progress towards goal: Partially Met (reports walking in home more without the walker,demonstrates here and is antalgic) Goal #4: pt report able to stand to perform light duties such as washing dishes Goal to be met by: 05/30/19 Progress towards goal: Met (Reports cooking a meal at home.) Plan Reason for Discharge:: Maximum Potential Met
== END 2019-06-28 23:59 ==
PROVIDERS: ATTEND Orthopaedic Surgery
DX: Z96.651 Presence of right artificial knee joint (principal)